=== PATIENT | female | born 1955 | race Caucasian/White ===

== ENCOUNTER 2016-05-29 15:04 | Inpatient (IN) | payer BC ==
[2016-05-29] MEDS ORDERED: Aspirin Low Dose CHEW TAB* 81 MG PO ONE (15:42)
[2016-05-29 16:29] LABS: Hematocrit 42 % (35-47); Hemoglobin 14.4 g/dl (12.0-16.0); Mean Corpuscular HGB Conc 34 g/dl (31-36); Mean Corpuscular Hemoglobin 30 pg (27-31); Mean Corpuscular Volume 89 fL (80-97); Mean Platelet Volume 9 um3 (7.4-10.4); Red Blood Count 4.75 10^6/ul (4.0-5.4); Red Cell Distribution Width 13 % (10.5-15); White Blood Count 8.4 10^3/ul (3.5-10.8)
[2016-05-29 16:43] LABS: Albumin 3.8 g/dL (3.2-5.2); BUN/Creatinine Ratio 20.3 (8-20); EGFR African American 102.6 (>60); EGFR Non-African American 79.8 (>60); Globulin 3.1 g/dL (2-4); Total Bilirubin 0.5 mg/dL (0.2-1.0); Total Protein 6.9 g/dL (6.4-8.9)
[2016-05-29 16:45] LABS: Troponin I 0.01 ng/mL (<0.04)
[2016-05-29] MEDS ORDERED: Iohexol 350* (CONTRAST) 500 ML MDV IV ONE (16:47)
--- NOTE | 2016-05-29 17:34 | RAD ---
INDICATION: Chest pain, cough, pleural effusion. COMPARISON: Comparison is made with a prior CT of the chest abdomen and pelvis from April 29, 2005. TECHNIQUE: A CT angiogram of the chest was performed with intravenous following intravenous injection of 75 ml of Omnipaque 350 nonionic contrast. Contiguous axial sections were obtained from the lung apices through the lung bases. Images were reconstructed in the coronal and sagittal planes. FINDINGS: There is relatively homogeneous opacification of the pulmonary arteries. There is marked narrowing of the lumen of the left main pulmonary artery and mild narrowing of the right main secondary to mediastinal and hilar lymphadenopathy. There is also narrowing of several left pulmonary artery segmental branches secondary to hilar lymphadenopathy. The heart is enlarged. There is a small to moderate size pericardial effusion present The thoracic aorta is normal in caliber and demonstrates homogeneous contrast opacification. There are multiple enlarged mediastinal and left hilar lymph nodes nodes. These form a large confluent mass surrounding and narrowing the left and right main pulmonary arteries as noted above. These measure up to 3.5 cm in transverse dimension in the pretracheal and precarinal region and 5.5 cm in transverse dimension in the subcarinal region. The confluent mass measures approximately 9.3 cm craniocaudal by 10.0 cm transverse by 5.2 cm AP. In addition, there are enlarged lymph nodes present in the supraclavicular region on the left side measuring up to 2.5 cm in transverse dimension. The patient is status post right mastectomy. No enlarged axillary lymph nodes are seen. There is a small right pleural effusion and a moderate size left pleural effusion. There are patchy infiltrates present in the left upper and lower lobes likely postobstructive less likely atelectasis. The liver is heterogeneous in density with multiple hypodense lesions measuring up to 2.2 cm in diameter. The liver is only partially visualized on this study. The liver is mildly enlarged. There is also mild enlargement of the spleen. There are bilateral adrenal nodules measuring up to 2.5 cm on the right side and 2.0 cm on the left side. No significant focal osseous abnormality is seen. IMPRESSION: 1. NO EVIDENCE FOR PULMONARY EMBOLISM. THERE IS NARROWING OF BOTH MAIN PULMONARY ARTERIES LEFT GREATER THAN RIGHT AND SEVERAL SEGMENTAL ARTERY BRANCHES ON THE LEFT SIDE SECONDARY TO MEDIASTINAL AND HILAR LYMPHADENOPATHY. 2. ENLARGED MEDIASTINAL, HILAR AND RIGHT SUPRACLAVICULAR LYMPH NODES. 3. SMALL RIGHT AND MODERATE SIZE LEFT PLEURAL EFFUSIONS. 4. SMALL TO MODERATE-SIZE PERICARDIAL EFFUSION. 5. INFILTRATES IN THE LEFT UPPER AND LOWER LOBES. 6. MULTIPLE HEPATIC METASTATIC LESIONS. 7. BILATERAL ADRENAL NODULES.
[2016-05-29] MEDS ORDERED: Furosemide IV* 10 MG/ML 10 ML VIAL (100 MG) IV ONE (18:30)
[2016-05-29] MEDS ORDERED: LORazepam TAB(*) 0.5 MG PO PRN (18:31)
[2016-05-29] MEDS ORDERED: Nicotine GUM* 2 MG PO PRN (18:31)
[2016-05-29] MEDS: Nicotine PATCH 21 MG/24 HR* PATCH TRANSDERM SCH (19:26)
--- NOTE | 2016-05-29 20:42 | ED ---
Michelle Wagoner Rebecca, scribed for Preston Marie MD on 05/29/16 at 1543 . HPI Chest Pain - HPI Summary HPI Summary: Pt is a 61 y/o F who presents to ED after being referred by [facility]. CXR at Urgent Care revealed "fluid on the lungs." Pt c/o CP, SOB and cough. Sx began gradually 1 month ago and have been constant and worsening since onset. CP is described by pt as "somebody grabbing something right out of my chest" and is discrete to the left anterior region. Pain is currently severe , ranked 9/10. Sx aggravated by deep breaths, laying down and position change, alleviated by nothing. Sx unchanged by leaning forward. Denies palpitations. No prior similar episodes. SHx current smoker. FHx CAD. Last physical exam was very long ago. - History of Current Complaint Chief Complaint: EDChestPainROMI Time Seen by Provider: 05/29/16 15:41 Hx Obtained From: Patient Onset/Duration: Started Weeks Ago, Still Present Timing: Constant Initial Severity: Moderate Current Severity: Severe Pain Intensity: 9 Pain Scale Used: 0-10 Numeric Chest Pain Location: Left Anterior Chest Pain Radiates: No Character: Other: - "somebody grabbing something" Aggravating Factor(s): Position - Laying down and position changes, Deep Breaths Alleviating Factor(s): Nothing Associated Signs and Symptoms: Positive: Shortness of Breath, Cough. Negative: Palpitations - Allergy/Home Medications Allergies/Adverse Reactions: Allergies Allergy/AdvReac Type Severity Reaction Status Date / Time Chlorpromazine Allergy See Comment Verified 05/29/16 15:08 [From Thorazine] Codeine Allergy Nausea Verified 05/29/16 15:08 PMH/Surg Hx/FS Hx/Imm Hx Endocrine/Hematology History: Denies: Hx Diabetes Cardiovascular History: Denies: Hx Hypertension Psychiatric History: Reports: Hx Anxiety, Hx Depression - Cancer History Cancer Type, Location and Year: BREAST CA - 2005 - Surgical History Surgery Procedure, Year, and Place: TONSILLECTOMY, C- SECTION (1975), HYSTERECTOMY (1995) Infectious Disease History: No Infectious Disease History: Denies: Traveled Outside the [place] in Last 30 Days - Family History Known Family History: Positive: Cardiac Disease - Social History Lives: With Family Smoking Status (MU): Current Every Day Smoker Review of Systems Positive: Chest Pain. Negative: Palpitations Positive: Shortness Of Breath, Cough All Other Systems Reviewed And Are Negative: Yes Physical Exam - Summary Physical Exam Summary: General: Pleasant, alert, generally comfortable appearing but there is visible tachypnea at a rate of 24 HEENT: Moist mucosa, PERRL Neck: Soft, supple, no adenopathy, no edema Heart: S1, S2, tachycardic, regular rhythm, no murmurs, rubs, or gallops. Left chest pain with sitting up for lung exam and pain is reproducible upon palpation. Lungs: Breathing comfortable, no wheezes. Rales and diminished breath sounds on the left. Abdominal: Soft, flat, nontender Extremities: Trace pitting edema bilaterally, no calf tenderness, calves soft Neuro: Alert and oriented x 3 Psych: Logical, coherent Triage Information Reviewed: Yes Vital Signs On Initial Exam: Initial Vitals Temp Pulse Resp BP Pulse Ox 97.8 F 122 18 153/71 97 05/29/16 15:08 05/29/16 15:08 05/29/16 15:08 05/29/16 15:08 05/29/16 15:08 Vital Signs Reviewed: Yes Procedures - Ultrasound Ultrasound: normal - Bedside sonosite No RV dilation, moderate appearing pericardial effusion, e-point septal separation suggests good ejection fraction. Left pleural effusion. No right pleural effusion. Diagnostics - Vital Signs Vital Signs Temp Pulse Resp BP Pulse Ox 05/29/16 15:08 97.8 F 122 18 153/71 97 - Laboratory Lab Results: Lab Results 05/29/16 05/29/16 05/29/16 Range/Units 16:10 16:10 16:10 WBC 8.4 (3.5-10.8) 10^3/ul RBC 4.75 (4.0-5.4) 10^6/ul Hgb 14.4 (12.0-16.0) g/dl Hct 42 (35-47) % MCV 89 (80-97) fL MCH 30 (27-31) pg MCHC 34 (31-36) g/dl RDW 13 (10.5-15) % Plt Count 175 (150-450) 10^3/ul MPV 9 (7.4-10.4) um3 Neut % (Auto) 73.7 (38-83) % Lymph % (Auto) 17.0 L (25-47) % Barbour % (Auto) 8.0 (1-9) % Eos % (Auto) 0.6 (0-6) % Baso % (Auto) 0.7 (0-2) % Absolute Neuts (auto) 6.2 (1.5-7.7) 10^3/ul Absolute Lymphs (auto) 1.4 (1.0-4.8) 10^3/ul Absolute Monos (auto) 0.7 (0-0.8) 10^3/ul Absolute Eos (auto) 0 (0-0.6) 10^3/ul Absolute Basos (auto) 0.1 (0-0.2) 10^3/ul Absolute Nucleated RBC 0.01 10^3/ul Nucleated RBC % 0.1 Sodium 137 (133-145) mmol/L Potassium 4.0 (3.5-5.0) mmol/L Chloride 102 (101-111) mmol/L Carbon Dioxide 27 (22-32) mmol/L Anion Gap 8 (2-11) mmol/L BUN 15 (6-24) mg/dL Creatinine 0.74 (0.51-0.95) mg/dL Est GFR ( Amer) 102.6 (>60) Est GFR (Non-Af Amer) 79.8 (>60) BUN/Creatinine Ratio 20.3 H (8-20) Glucose 119 H (70-100) mg/dL Lactic Acid 1.0 (0.5-2.0) mmol/L Calcium 10.0 (8.6-10.3) mg/dL Total Bilirubin 0.50 (0.2-1.0) mg/dL AST 27 (13-39) U/L ALT 22 (7-52) U/L Alkaline Phosphatase 99 (34-104) U/L Troponin I 0.01 (<0.04) ng/mL B-Natriuretic Peptide ( - 100) pg/mL Total Protein 6.9 (6.4-8.9) g/dL Albumin 3.8 (3.2-5.2) g/dL Globulin 3.1 (2-4) g/dL Albumin/Globulin Ratio 1.2 (1-3) 05/29/16 Range/Units 16:10 WBC (3.5-10.8) 10^3/ul RBC (4.0-5.4) 10^6/ul Hgb (12.0-16.0) g/dl Hct (35-47) % MCV (80-97) fL MCH (27-31) pg MCHC (31-36) g/dl RDW (10.5-15) % Plt Count (150-450) 10^3/ul MPV (7.4-10.4) um3 Neut % (Auto) (38-83) % Lymph % (Auto) (25-47) % Barbour % (Auto) (1-9) % Eos % (Auto) (0-6) % Baso % (Auto) (0-2) % Absolute Neuts (auto) (1.5-7.7) 10^3/ul Absolute Lymphs (auto) (1.0-4.8) 10^3/ul Absolute Monos (auto) (0-0.8) 10^3/ul Absolute Eos (auto) (0-0.6) 10^3/ul Absolute Basos (auto) (0-0.2) 10^3/ul Absolute Nucleated RBC 10^3/ul Nucleated RBC % Sodium (133-145) mmol/L Potassium (3.5-5.0) mmol/L Chloride (101-111) mmol/L Carbon Dioxide (22-32) mmol/L Anion Gap (2-11) mmol/L BUN (6-24) mg/dL Creatinine (0.51-0.95) mg/dL Est GFR ( Amer) (>60) Est GFR (Non-Af Amer) (>60) BUN/Creatinine Ratio (8-20) Glucose (70-100) mg/dL Lactic Acid (0.5-2.0) mmol/L Calcium (8.6-10.3) mg/dL Total Bilirubin (0.2-1.0) mg/dL AST (13-39) U/L ALT (7-52) U/L Alkaline Phosphatase (34-104) U/L Troponin I (<0.04) ng/mL B-Natriuretic Peptide 62 ( - 100) pg/mL Total Protein (6.4-8.9) g/dL Albumin (3.2-5.2) g/dL Globulin (2-4) g/dL Albumin/Globulin Ratio (1-3) Result Diagrams: 05/29/16 16:10 05/29/16 16:10 Lab Statement: Any lab studies that have been ordered have been reviewed, and results considered in the medical decision making process. - CT Chest/Thorax CTA CT Interpretation Completed By: Radiologist - 1. NO EVIDENCE FOR PULMONARY EMBOLISM. THERE IS NARROWING OF BOTH MAIN PULMONARY ARTERIES LEFT GREATER THAN RIGHT AND SEVERAL SEGMENTAL ARTERY BRANCHES ON THE LEFT SIDE SECONDARY TO MEDIASTINAL AND HILAR LYMPHADENOPATHY. 2. ENLARGED MEDIASTINAL, HILAR AND RIGHT SUPRACLAVICULAR LYMPH NODES. 3. SMALL RIGHT AND MODERATE SIZE LEFT PLEURAL EFFUSIONS. 4. SMALL TO MODERATE-SIZE PERICARDIAL EFFUSION. 5. INFILTRATES IN THE LEFT UPPER AND LOWER LOBES. 6. MULTIPLE HEPATIC METASTATIC LESIONS. 7. BILATERAL ADRENAL NODULES. - EKG 1518 Cardiac Rate: Tachycardia - 118 bpm EKG Rhythm: Sinus Tachycardia ST Segment: Normal - No ST changes Chest Pain Course/Dx - Course Course Of Treatment: Logged into [facility] for [facility] to review film. Read for image is "large left pleural effusion" and upon evaluation of image, conclusion is agreed upon. Assessment/Plan: She has not had medical care in many years. Her only known medical Hx is breast CA. She presents with progressive, worsening SOB and orthopnea. There is a large left pleural effusion and pericardial effusion. Very concerning for inflammatory process or CA. Dr. Estrada accepts and will likely request aspiration. She has been walking about the ER, has been fairly comfortable and has maintained her vitals, except for mild tachycardia. We elected not to emergently insert chest tube as this has been slowly progressive and she was stable in regards to her sx. - Diagnoses Provider Diagnoses: Pleural effusion, Pericardial effusion - Provider Notifications Discussed Care Of Patient With: Dr. Estrada, hospitalist, who accepts pt for admission. Time Discussed With Above Provider: 17:37 - Critical Care Time Critical Care Time: 30-74 min - 60 minutes Discharge - Discharge Plan Condition: Guarded Disposition: ADMITTED TO [facility] documentation as recorded by the Michelle valero Rebecca accurately reflects the service I personally performed and the decisions made by oh, Preston Marie MD.
[2016-05-29] MEDS: Levofloxacin 750 MG IVPREMIX(* 750 MG/150 ML BAG IVPB SCH (21:09)
[2016-05-29] MEDS: Nicotine Patch Removal NOTE FOLLOW UP SCH (21:12)
[2016-05-29] MEDS: Heparin VIAL(*) 5000 UNITS/ML VIAL (FIVE THOUSAND) SUBCUT SCH (21:12)
--- NOTE | 2016-05-29 23:05 | HP ---
HISTORY AND PHYSICAL: DATE OF ADMISSION: 05/29/16 PRIMARY CARE PROVIDER: Not listed. FORMER PRIMARY ONCOLOGIST: Dr. Sorensen. ADMITTING PROVIDER: VENICE Burns SUPERVISING PHYSICIAN: Dr. Franki Verdin.* (DICTATED BY VENICE BURNS) CHIEF COMPLAINT: Dyspnea. 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 The patient states that her symptoms actually first started as a cough just over a month ago and she has been having progressive shortness of breath over the last few weeks. She denies any fevers at home, but she has had drenching night sweats and complains of orthopnea. She is unable to lie flat without significant shortness of breath. She denies any abdominal pain, but does have some intermittent nausea. No vomiting or diarrhea. The patient's last mammogram was in 2010 of the left breast, history of right breast cancer which the mastectomy was completed on and her mammogram from that time was within normal limits. The patient had a pericardial effusion appreciated on CT scan and bedside ultrasound was completed in the emergency department, which did not show any evidence of tamponade. PAST MEDICAL HISTORY: Inflammatory breast cancer of the right breast, status post mastectomy as well as chemo and radiation in 2005 - was previously followed by Dr. Sorensen. PAST SURGICAL HISTORY: 1. Mastectomy. 2. Hysterectomy. 3. section. HOME MEDICATIONS: Aspirin as needed for pain. SOCIAL HISTORY: The patient lives at home with her and one cat. She has a 40 plus pack year smoking history and continues to smoke about a half a pack of cigarettes daily. REVIEW OF SYSTEMS: As listed above in the HPI. PHYSICAL EXAMINATION GENERAL: This is a well-appearing middle-aged female, who appears slightly older than her stated age, but is in no acute distress. VITAL SIGNS: Temperature 97.8 degrees Fahrenheit, pulse 122 beats per minute, respiratory rate 18 per minute, oxygen saturation 97% on room air, and blood pressure 153/71 mmHg. HEENT: Head is normocephalic and atraumatic. Artificial teeth are in place. NECK: Neck is supple and free of lymphadenopathy. No JVD appreciated. RESPIRATORY: Lungs, there is reduced breath sounds appreciated in the left lower lung field and are otherwise clear to auscultation without wheezes, crackles, or rhonchi and the patient has a normal work of breathing. Chest and breast were examined for abnormal lesions, none of which were present. HEART: Tachycardic rhythm, but regular and without murmurs, rubs, or gallops. ABDOMEN: Abdomen is soft and nontender to palpation. EXTREMITIES: No lower extremity edema present. SKIN: No rashes or lesions. PSYCH: The patient is anxious and tearful, but is alert and appropriately oriented. LABORATORY DATA: CBC is unremarkable with a white blood cell count of 8400, hemoglobin 14.4 g/dL, and platelet count of 175,000. Comprehensive metabolic panel is unremarkable with a sodium of 137 mmol/L as well as potassium of 4.0 mmol/L, BUN of 15 and creatinine of 0.74 with subsequent estimated GFR of near 80. Lactic acid is negative at 1.0. Transaminases and total bilirubin within normal limits. BNP is normal at 62. IMAGING: EKG show sinus tachycardia. CT of the chest shows mediastinal as well as hilar and right supraclavicular lymphadenopathy as well as a moderately sized left pleural effusion, small right pleural effusion, [id number] pericardial effusion as well as an infiltrate in the left upper and lower lobes and multiple hepatic lesions that appeared to be metastatic in origin. ASSESSMENT AND PLAN: This is a 61-year-old female with a history of stage III right inflammatory breast cancer treated with mastectomy, chemotherapy, and radiation in 2005, who presents with complaints of dyspnea and obvious infiltrates in the left lung with associated pleural effusion, but also hepatic nodes consistent with metastatic process as well as significant lymphadenopathy including right supraclavicular nodes making this suspicious for recurrence of her breast cancer. 1. Pneumonia - we will treat for left-sided pneumonia with Levaquin. 2. Pleural effusion - the patient is complaining of significant shortness of breath. This may be either be due to her pleural effusion or pericardial effusion. She is asymptomatic when sitting upright. We will request an ultrasound-guided thoracentesis for both therapeutic and diagnostic purposes, concerned that this may represent a recurrence of her breast cancer. The majority of her fluid is on the left side, with the right side being the side the supraclavicular nodes are present. So, this pleural effusion may be reactive to her pneumonia and has nothing to do with potential metastatic process. Regardless, she should receive some symptomatic relief with some of the fluid removed. We will also give a one-time dose of 20 mg of Lasix IV for hopefully some symptomatic relief. 3. Pericardial effusion - bedside ultrasound completed in the emergency department without evidence of tamponade. The patient is hemodynamically stable , but persistently tachycardic at this time. 4. History of inflammatory breast cancer - I am concerned for recurrence based on constellation of findings on her CT scan. Previously followed by Dr. Sorensen. 5. Hepatic lesions with supraclavicular mediastinal and hilar lymphadenopathy - constellation of findings along with a pleural effusion is suspicious for recurrence of her breast cancer. 6. Tobacco dependence - the patient will be placed on a nicotine patch during her hospital stay. 7. Anxiety - Diagnosis of potential recurrence of her breast cancer, she is quite tearful and anxious. We will prescribe p.r.n. Ativan during her hospital stay. 8. Code status: The patient is full code. 9. DVT prophylaxis: She is at moderate to high risk especially with possible active malignancy and will be placed on heparin 5000 units subcu every 8 hours. This will be more easily time adjusted to the thoracentesis as well. 10. Healthcare proxy is her . DISPOSITION: The patient is being admitted to inpatient for pneumonia with pleural effusion and evidence of recurrence of her breast cancer pending diagnostic and therapeutic thoracentesis. She may require a liver biopsy as well to help with the diagnostic portion and referral back to Oncology either at discharge or if the patient is still in the hospital on Tuesday, inpatient Oncology consultation would be warranted as well. VENICE BURNS CC: Dr. Raphael Sorensen* [id number]/[facility] #: [id number] DOUGLAS
[2016-05-29] MEDS: Acetaminophen TAB* 325 MG PO PRN (23:20)
[2016-05-30] MEDS: Heparin VIAL(*) 5000 UNITS/ML VIAL (FIVE THOUSAND) SUBCUT SCH ×3 (05:01→20:52)
[2016-05-30 05:29] LABS: Hematocrit 39 % (35-47); Hemoglobin 13.3 g/dl (12.0-16.0); Mean Corpuscular HGB Conc 34 g/dl (31-36); Mean Corpuscular Hemoglobin 30 pg (27-31); Mean Corpuscular Volume 89 fL (80-97); Mean Platelet Volume 9 um3 (7.4-10.4); Red Blood Count 4.39 10^6/ul (4.0-5.4); Red Cell Distribution Width 13 % (10.5-15); White Blood Count 9.4 10^3/ul (3.5-10.8)
[2016-05-30 05:40] LABS: BUN/Creatinine Ratio 20.5 (8-20); Calcium 9.5 mg/dL (8.6-10.3); EGFR Non-African American 65.3 (>60)
[2016-05-30] MEDS ORDERED: oxyCODONE/Acetamin 5/325 MG* TAB PO PRN ×2 (12:19→12:20)
[2016-05-30] MEDS: Senna TAB PO SCH (13:48)
--- NOTE | 2016-05-30 14:19 | PN ---
Subjective Date of Service: 05/30/16 Interval History: Patient seen this morning. Symptoms feel about the same, still with some difficulty breathing which is positional, also with pleuritic/positional chest pain. No documented fever but patient reports continued night sweats. Urinated a good amount last night but did not notice much improvement in her breathing. Family History: Unchanged from Admission Social History: Unchanged from Admission Past Medical History: Unchanged from Admission Objective Active Medications: Acetaminophen (Tylenol Tab*) 650 mg PO Q6H PRN Heparin Sodium (Porcine) (Heparin Vial(*)) 5,000 units SUBCUT Q8HR CHRISTY Levofloxacin/Dextrose (Levaquin 750 Mg Ivpremix(*)) 750 mg in 150 mls @ 100 mls /hr IVPB Q24H CHRISTY Lorazepam (Ativan Tab(*)) 0.5 mg PO Q4H PRN Nicotine (Nicotine Patch 21 Mg/24 Hr*) 1 patch TRANSDERM Q24H CHRISTY Nicotine Polacrilex (Nicotine Gum*) 2 mg PO Q2H PRN Oxycodone/Acetaminophen (Percocet 5/325 Tab*) 1 tab PO Q4H PRN Oxycodone/Acetaminophen (Percocet 5/325 Tab*) 2 tab PO Q6H PRN Pharmacy Profile Note (Nicotine Patch Removal Note*) 1 note FOLLOW UP [address] [facility] Senna (Senokot Tab*) 1 tab PO DAILY [facility] Vital Signs 05/29/16 05/29/16 05/30/16 22:14 22:25 00:45 Temperature 98.9 F 97.8 F Pulse Rate 119 112 Respiratory 18 18 16 Rate Blood Pressure 122/74 138/41 (mmHg) O2 Sat by Pulse 100 94 Oximetry 05/30/16 05/30/16 05/30/16 03:18 07:18 08:00 Temperature 97.0 F 98.4 F Pulse Rate 102 102 Respiratory 16 20 20 Rate Blood Pressure 113/49 115/46 (mmHg) O2 Sat by Pulse 97 97 Oximetry 05/30/16 13:48 Temperature Pulse Rate Respiratory 18 Rate Blood Pressure (mmHg) O2 Sat by Pulse Oximetry Oxygen Devices in Use Now: None Appearance: Middle-aged, F, sitting in bed in NAD Eyes: No Scleral Icterus Ears/Nose/Mouth/Throat: Mucous Membranes Moist Neck: NL Appearance and Movements; NL JVP Respiratory: - - Difficulty taking deep breaths, absent BS in LML and LLL ayala , diminished in R base, no wheezing Cardiovascular: NL Sounds; No Murmurs; No JVD, RRR Abdominal: NL Sounds; No Tenderness; No Distention Lymphatic: No Cervical Adenopathy Extremities: No Edema Skin: No Rash or Ulcers Neurological: Alert and Oriented x 3 Result Diagrams: 05/30/16 04:45 05/30/16 04:45 Additional Lab and Data: Assess/Plan/Problems-Billing Assessment: CAP and B/L pleural effusions, LAD and hepatic lesions concerning for metastatic disease in a 61 yo F with hx of inflammatory breast cancer s/p chemo , mastectomy and RT in 2005 - Patient Problems (1) CAP (community acquired pneumonia) Current Visit: Yes Comment: Continue with IV Levaquin for now. Not requiring supplemental O2. (2) Pleural effusion Current Visit: Yes Comment: Plan for IR thoracentesis for diagnostic and therapeutic purposes. (3) Breast cancer Current Visit: Yes Comment: s/p chemo, surgery and RT in 2005. Has not followed up with Dr. Sorensen in years. Obviously with LAD, effusions and hepatic lesions there is a high concern for recurrence. Will get Oncology consult tomorrow. (4) DVT prophylaxis Current Visit: Yes Comment: HSQ Status and Disposition: Inpatient for thoracentesis and Oncology consult
[2016-05-30] MEDS: Nicotine PATCH 21 MG/24 HR* PATCH TRANSDERM SCH (20:59)
[2016-05-30] MEDS: Acetaminophen TAB* 325 MG PO PRN (21:01)
[2016-05-30] MEDS: Levofloxacin 750 MG IVPREMIX(* 750 MG/150 ML BAG IVPB SCH (21:02)
[2016-05-30] MEDS: Nicotine Patch Removal NOTE FOLLOW UP SCH (21:06)
[2016-05-31] MEDS: Heparin VIAL(*) 5000 UNITS/ML VIAL (FIVE THOUSAND) SUBCUT SCH ×3 (04:58→21:56)
[2016-05-31] MEDS: Senna TAB PO SCH (08:50)
[2016-05-31] MEDS ORDERED: HYDROmorphone TAB* 2 MG PO PRN (10:48)
[2016-05-31] MEDS ORDERED: Scopolamine 1.5 mg* PATCH TRANSDERM SCH (11:00)
--- NOTE | 2016-05-31 14:41 | CONS ---
CONSULTATION REPORT: DATE: 05/31/2016. REFERRING PHYSICIAN: Dr. Verdin. REASON FOR CONSULTATION: Lung mass. 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 Last seen by me in 2010. She had had relatively good health since 2010. She has had no changes in her chest wall, energy has been good and considers herself healthy. She had continued to smoke, though has been cutting back. Most recently has been smoking 10 cigarettes per day. Her health deteriorated approximately a month ago. She started to develop a cough that was persistent and progressive. She was treated for pneumonia but without improvement in her symptoms. She also has developed shortness of breath. She cannot take a deep breath without feeling pain and she has had difficulty with exertion. She has had increasing chest pain on the left side, mid chest radiating to shoulder and then radiating to her back. Appetite has been so poor. Every time she tries to eat she feels like her stomach fills up very quickly and she has lost 12 pounds over the past month, she has also been constipated. Energy has been very poor. She was seen at [facility] and told that she had fluid on the side of her lung and sent to the emergency room. On presentation to the emergency room on 06/04/16, she had a CTA. There was no evidence of pulmonary embolus, but she was found to have extensive mediastinal lymphadenopathy, clint mass in the mediastinum, at least 7 cm. On the left side , she has a left lower lobe consolidation. There appears to be a cut off of one of her left bronchi apparently pinched by lymphadenopathy and then a postobstructive consolidation. There is a moderate left pleural effusion with some atelectasis in the left lower lobe as well. No axillary chest wall disease and bone windows appear clear. There are no adrenal lesions. There are multiple hypodense hepatic lesions in both lobes, largest in the left lobe of the liver. She has been admitted to the hospital, is on oxygen. Tried Percocet for pain control, but it caused nausea and now she does not want to take it anymore. PAST MEDICAL HISTORY: 1. Breast cancer. Diagnosed in 2004. She had inflammatory disease and was treated with neoadjuvant ACT chemotherapy. She was ER, CO, and HER-2/gulshan negative. She had a bilateral mastectomy after her chemotherapy in September 2005. At that time she had 3 axillary lymph nodes removed that were negative. Right modified radicle mastectomy showed extensive chemotherapy effect with focal residual invasive disease 0.3 cm in greatest span. She was subsequently followed through 2010, remained disease free and has not been seen since that time. 2. Anxiety and depression. Lifelong challenge, originally diagnosed in her mid 30s. Symptoms have been intermittent and recently done relatively well. She has taken lorazepam in the past which has helped. She has never been on SSRI. 3. Fibroids, total abdominal hysterectomy in 1995, uncontrolled bleeding. 4. Bursitis, intermittent, left shoulder. PAST SURGICAL HISTORY: Right-sided mastectomy for breast cancer. MEDICATIONS: Home medicines included aspirin alone. ALLERGIES: THORAZINE causes stiff tongue and she has had vomiting in the past to CODEINE. FAMILY HISTORY: Sister had cancer 45 years old, treated with surgery, radiation , and chemotherapy. No other known family history. SOCIAL HISTORY: , lives in [facility]. No children. She has a 65-pack year smoking history and currently smokes 10 cigarettes a day. Drinks 1 to 2 alcoholic beverages per night and was with her in the Clinic. REVIEW OF SYSTEMS: General: Fatigue, 12-pound weight loss. HEENT: Cough, phlegm production, otherwise negative. Lungs: Short of breath, chest pain with a deep breath, chronic cough. No hemoptysis. Cardiac: Negative. GI: Lost 12 pounds, not eating much, constipated and nausea with oxycodone. : Negative. Musculoskeletal: Pain in left shoulder, somewhat erratic pains in the past. Skin: Negative. Neurologic: Anxiety, has not been in control. Otherwise negative. No focal complaints. PHYSICAL EXAM: VITAL SIGNS: Temperature 97.2, BP 138/56, pulse 87, and respirations 16. HEENT: Mucosa moist, no lesions. No cervical or supraclavicular lymphadenopathy. CHEST: Right-sided mastectomy, axilla negative bilaterally. LUNGS: Crackles left side, no wheezes. Could not bring E to A changes. HEART: Regular rhythm, S1 and S2. No murmurs, rubs, or gallops. ABDOMEN: Obese, nontender, and nondistended. Can palpate liver edge which is nontender. EXTREMITIES: No cyanosis or edema, slight clubbing. NEUROLOGIC: Grossly nonfocal and oriented x3. DIAGNOSTIC STUDIES/LAB DATA: Blood counts are normal. Essentially normal renal function. No elevation in LFTs. CT scan as noted above. ASSESSMENT AND PLAN: A 61-year-old female, smoker, with a remote history of inflammatory breast cancer, ER/CO and Her-2/gulshan negative, has been disease free since 2004. Now presents with marked mediastinal lymphadenopathy, left lower lobe consolidation and liver lesions. Highly suspicious for a primary lung cancer. 1. Agree with plans for diagnostic and therapeutic thoracentesis. If the study is negative, next step will be bronchoscopy with EBUS. We will hold on consultation with Dr. Judd until after the thoracentesis. 2. Pain control. We will try her on OxyContin 10 b.i.d. and Dilaudid. I still think narcotics are the best pain medicine for her, the nausea will be an issue. Try scopolamine patch. 3. Anxiety. I will probably just put her on a benzodiazepine. She is appropriately anxious at this time. No recent episodes of depression. No hospitalizations for psychiatric illness. 4. Continue DVT prophylaxis. 5. She does not need to be in the hospital for diagnostic reasons. Discharge once pain is controlled and her breathing is stable and we can follow up in the office. [id number]/[facility] #: [id number] DOUGLAS
--- NOTE | 2016-05-31 15:09 | RAD ---
CPT II Codes: 6100F INDICATION: Shortness of breath with bilateral pleural effusions COMPARISON: CT chest May 29, 2016 PROCEDURE NOTE AND IMAGING FINDINGS: The benefits of the and risks of procedure explained to the patient. The patient consented of the exam. The patient was brought to the ultrasound suite and multiple images of the left hemithorax were obtained. There was a large pleural effusion present. The site was marked. A formal time out was performed before beginning the procedure. The patient was prepped and draped in the usual sterile fashion. The patient?s posterior chest wall was anesthetized with 1% lidocaine. A small skin willem was made to allow placement of the thoracentesis needle and catheter. Approximately 950 mL of straw-colored fluid was aspirated. The patient tolerated the procedure without incident. IMPRESSION: Uncomplicated thoracentesis as described in the body of the report.
[2016-05-31 15:23] LABS: Body Fluid Appearance Bloody
[2016-05-31 15:30] LABS: Body Fluid WBC 3871 /mcL
[2016-05-31 15:43] LABS: Body Fluid Total Cells Counted 100
[2016-05-31] MEDS: Acetaminophen TAB* 325 MG PO PRN (15:47)
--- NOTE | 2016-05-31 16:46 | PN ---
Subjective Date of Service: 05/31/16 Interval History: Patient seen this morning. Pain unchanged. Had nausea with 2 percocets last night after tolerating initial single pill earlier in the day. Ambulating around the unit today. Family History: Unchanged from Admission Social History: Unchanged from Admission Past Medical History: Unchanged from Admission Objective Active Medications: Acetaminophen (Tylenol Tab*) 650 mg PO Q6H PRN PRN Reason: FEVER/PAIN Last Admin: 05/31/16 15:47 Dose: 650 mg Heparin Sodium (Porcine) (Heparin Vial(*)) 5,000 units SUBCUT Q8HR [facility] Last Admin: 05/31/16 14:14 Dose: Not Given Hydromorphone HCl (Dilaudid Tab*) 2 mg PO Q4H PRN PRN Reason: PAIN Last Admin: 05/31/16 12:17 Dose: 2 mg Levofloxacin/Dextrose (Levaquin 750 Mg Ivpremix(*)) 750 mg in 150 mls @ 100 mls /hr IVPB Q24H [facility] Last Admin: 05/30/16 21:02 Dose: 100 mls/hr Lorazepam (Ativan Tab(*)) 0.5 mg PO Q4H PRN PRN Reason: ANXIETY Nicotine (Nicotine Patch 21 Mg/24 Hr*) 1 patch TRANSDERM Q24H [facility] Last Admin: 05/30/16 20:59 Dose: 1 patch Nicotine Polacrilex (Nicotine Gum*) 2 mg PO Q2H PRN PRN Reason: CRAVING Oxycodone HCl (Oxycontin(*)) 10 mg PO Q12HR [facility] Pharmacy Profile Note (Nicotine Patch Removal Note*) 1 note FOLLOW UP 2100 [facility] Last Admin: 05/30/16 21:06 Dose: Not Given Scopolamine (Transderm-Scop 1.5 Mg Patch*) 1 patch TRANSDERM Q72H [facility] Last Admin: 05/31/16 12:17 Dose: 1 patch Senna (Senokot Tab*) 1 tab PO DAILY [facility] Last Admin: 05/31/16 08:50 Dose: Not Given Vital Signs 05/30/16 05/30/16 05/30/16 17:26 19:16 19:21 Temperature 97.4 F Pulse Rate 93 Respiratory 18 18 16 Rate Blood Pressure 124/45 (mmHg) O2 Sat by Pulse 93 Oximetry 05/30/16 05/31/16 05/31/16 19:26 00:13 03:03 Temperature 97.5 F 97.4 F Pulse Rate 89 89 Respiratory 16 16 16 Rate Blood Pressure 128/57 135/70 (mmHg) O2 Sat by Pulse 95 95 Oximetry 05/31/16 05/31/16 05/31/16 07:29 08:00 12:17 Temperature 97.2 F Pulse Rate 84 Respiratory 16 16 18 Rate Blood Pressure 138/56 (mmHg) O2 Sat by Pulse 96 Oximetry 05/31/16 05/31/16 05/31/16 14:00 14:07 14:44 Temperature 99.1 F 99.4 F Pulse Rate 104 93 Respiratory 16 18 16 Rate Blood Pressure 145/66 146/68 (mmHg) O2 Sat by Pulse 93 94 Oximetry Oxygen Devices in Use Now: None Appearance: Middle-aged, F, sitting in chair in NAD Eyes: No Scleral Icterus Ears/Nose/Mouth/Throat: Mucous Membranes Moist Neck: NL Appearance and Movements; NL JVP Respiratory: - - Some pain with inspiration, diminished/absent BS in LML and LLL field, diminished in R base Cardiovascular: NL Sounds; No Murmurs; No JVD, RRR Abdominal: NL Sounds; No Tenderness; No Distention Lymphatic: No Cervical Adenopathy Extremities: No Edema Skin: No Rash or Ulcers Neurological: Alert and Oriented x 3 Result Diagrams: 05/30/16 04:45 05/30/16 04:45 Additional Lab and Data: Microbiology and Other Data: Microbiology 05/31/16 14:50 Gram Stain - Final Body Fluid - Pleura Assess/Plan/Problems-Billing Assessment: CAP and B/L pleural effusions, LAD and hepatic lesions concerning for metastatic disease in a 61 yo F with hx of inflammatory breast cancer s/p chemo , mastectomy and RT in 2005 - Patient Problems (1) CAP (community acquired pneumonia) Current Visit: Yes Comment: Will complete short course of Levaquin, can switch to PO. (2) Pleural effusion Current Visit: Yes Comment: LAD, liver lesions. Concern for malignancy. Dr. Sorensen feels this could be new lung cancer. S/P thoracentesis this afternoon with 950 cc removed. Cytology pending. Appreciate Dr. Sorensen's assistance with pain control. (3) Breast cancer Current Visit: Yes Comment: s/p chemo, surgery and RT in 2005. (4) DVT prophylaxis Current Visit: Yes Comment: HSQ Status and Disposition: Inpatient until pain controlled
[2016-05-31] MEDS ORDERED: Levofloxacin TAB* 500 MG PO SCH (21:00)
[2016-05-31] MEDS: oxyCODONE SR TAB(*) 10 MG TAB.SR PO SCH (21:51)
[2016-05-31] MEDS: Nicotine PATCH 21 MG/24 HR* PATCH TRANSDERM SCH (21:52)
[2016-05-31] MEDS: Nicotine Patch Removal NOTE FOLLOW UP SCH (21:53)
[2016-06-01] MEDS: Heparin VIAL(*) 5000 UNITS/ML VIAL (FIVE THOUSAND) SUBCUT SCH ×2 (05:24→14:17)
[2016-06-01] MEDS: oxyCODONE SR TAB(*) 10 MG TAB.SR PO SCH (09:18)
[2016-06-01] MEDS: Senna TAB PO SCH (09:20)
[2016-06-01 13:05] LABS: Total Protein, BF 3.7 g/dL
--- NOTE | 2016-06-01 14:38 | PN ---
Progress Note - Progress Note SOAP: Subjective: [] Better today. Feels breathing better after fluid removed. Pain is a little better today and not having nausea with Oxycontin. Acetaminophen (Tylenol Tab*) 650 mg PO Q6H PRN PRN Reason: FEVER/PAIN Last Admin: 05/31/16 15:47 Dose: 650 mg Heparin Sodium (Porcine) (Heparin Vial(*)) 5,000 units SUBCUT Q8HR [facility] Last Admin: 06/01/16 14:17 Dose: 5,000 units Hydromorphone HCl (Dilaudid Tab*) 2 mg PO Q4H PRN PRN Reason: PAIN Last Admin: 05/31/16 12:17 Dose: 2 mg Influenza Virus Vaccine (Fluarix *Quad* 2015-*) 0.5 ml IM .ONCE ONE Stop: 06/02/16 09:01 Levofloxacin (Levaquin Tab*) 500 mg PO Q24H [facility] Last Admin: 05/31/16 21:52 Dose: 500 mg Lorazepam (Ativan Tab(*)) 0.5 mg PO Q4H PRN PRN Reason: ANXIETY Nicotine (Nicotine Patch 21 Mg/24 Hr*) 1 patch TRANSDERM Q24H [facility] Last Admin: 05/31/16 21:52 Dose: 1 patch Nicotine Polacrilex (Nicotine Gum*) 2 mg PO Q2H PRN PRN Reason: CRAVING Oxycodone HCl (Oxycontin(*)) 10 mg PO Q12HR [facility] Last Admin: 06/01/16 09:18 Dose: 10 mg Pharmacy Profile Note (Nicotine Patch Removal Note*) 1 note FOLLOW UP 2100 [facility] Last Admin: 05/31/16 21:53 Dose: 1 note Scopolamine (Transderm-Scop 1.5 Mg Patch*) 1 patch TRANSDERM Q72H [facility] Last Admin: 05/31/16 12:17 Dose: 1 patch Senna (Senokot Tab*) 1 tab PO DAILY [facility] Last Admin: 06/01/16 09:20 Dose: 1 tab Objective: [] Vital Signs Temp Pulse Resp BP Pulse Ox 98.5 F 104 16 102/68 92 06/01/16 11:05 06/01/16 11:05 06/01/16 11:18 06/01/16 11:36 06/01/16 11:05 HEENT - Mucosa moist. CTA but decreased BS on right RRR S1S2 Abd - NT/ND +BS Ext - no edema. Assessment: []Stable today, diagnosis pending Plan: []1. Continue Oxycontin 10 bid today, scopolamine 2. Will present at tumor board tomorrow 3. Discussed bronchoscope if path negative from fluid 4. Can d/c once symptoms improved and I will follow up with pathology.
[2016-06-01 16:11] VITALS: BP 126/61
[2016-06-01] MEDS ORDERED: Influenza VAC *QUAD* 2016-17* 0.5 ML SYRINGE IM ONE (18:08)
--- NOTE | 2016-06-02 08:07 | DS ---
DISCHARGE SUMMARY: DATE OF ADMISSION: 05/29/16 DATE OF DISCHARGE: 06/01/16 PRIMARY CARE PROVIDER: None. REFERRED TO: [facility]. PRIMARY DIAGNOSES: Include: 1. Community-acquired pneumonia associated with pleural effusion and newly- identified liver lesions concerning for malignancy. 2. History of breast cancer. 3. Tobacco abuse. 4. Anxiety. SECONDARY DIAGNOSIS: Large mediastinal hilar lymphadenopathy. MEDICATIONS ON DISCHARGE: 1. Oxycodone SR 10 mg twice daily, dispensed 60 tablets. 2. Levaquin 500 mg daily for 5 additional days. 3. Docusate 100 mg twice daily as needed for constipation. 4. Acetaminophen 650 mg every 6 hours as needed for pain. PROCEDURE PERFORMED DURING HOSPITAL STAY: Thoracentesis performed by Dr. Valentin , 05/31/16, impression: 950 cc of straw-colored fluid was aspirated, sent for cytology. CONSULTATIONS DURING THE HOSPITAL STAY: Dr. Sorensen from Oncology. PERTINENT IMAGING PERFORMED DURING THE HOSPITAL STAY: CTA chest and thorax, impression: No evidence of pulmonary embolism. There is narrowing of both main pulmonary arteries, left greater than right, and several segmental artery branches on the left side secondary to mediastinal hilar lymphadenopathy, large mediastinal hilar lymphadenopathy on right, supraclavicular lymph nodes. Small right and moderate left-sided pleural effusions. Small to moderate pericardial effusion. Infiltrates in the left upper and lower lobes. Multiple hepatic metastatic lesions. Bilateral adrenal nodules. HISTORY OF PRESENT ILLNESS AND HOSPITAL COURSE: This is a pleasant 61-year-old female with past medical history as indicated above including right inflammatory breast cancer status post mastectomy and chemo in 2016. She was lost to followup, not following with a primary care provider, presenting with new-onset dyspnea found with pericardial and pleural effusion status post thoracentesis as indicated above, 950 cc of fluid removed. She was also found with new large mediastinal and hilar lymphadenopathy with associated new liver lesions. There is obviously a concern for cancer. Cytology is pending from the pleural effusion. She is to follow up with Dr. Sorensen upon discharge. Pain control, which was both thoracic in her shoulder and her back, was difficult during the course of the hospital stay. It was complicated by patient's nausea with taking narcotics. She was ultimately transitioned to long-acting oxycodone with good relief. On day of discharge, she took one tab of 10 mg oxycodone in the morning without pain when seen later in the evening. She was anxious to return home. Medications were sent to [facility]. There were no complications during the patient's hospital stay. At followup, please: 1. Evaluate for followup with Dr. Sorensen as well as primary care provider. 2. Continued pain control. 3. Please follow cytology. Reasons to return to the hospital including, but not limited to worsening of symptoms chest pain, shortness of breath, nausea, vomiting, lightheadedness, bleeding from any source, inability to obtain or tolerate medications were discussed with the patient. She acknowledged understanding. TIME SPENT: Greater than 45 minutes were spent discharging the patient; greater than half was spent [id number] with the patient. CC: [facility]; Raphael Sorensen MD of [facility] * [id number]/[facility] #: [id number] MTDD
[2016-06-02] MEDS ORDERED: Influenza VAC *QUAD* 2016-17* 0.5 ML SYRINGE IM ONE (09:00)
[2016-06-03 12:24] LABS: BF PH 7.7
== END 2016-06-01 18:25 | disposition home or self-care (01) | DRG 139 ==
LOC: ED 15:04 → MEDTELE 18:27
PROVIDERS: ADMIT Hospitalist; ATTEND Internal Medicine
PROC: 0W9B3ZX Drainage of Left Pleural Cavity, Percutaneous Approach, Diagnostic (ICD-10-PCS; principal; 2016-05-31)
DX: J18.8 Other pneumonia, unspecified organism (principal); J90 Pleural effusion, not elsewhere classified; I31.3 Pericardial effusion (noninflammatory); J98.11 Atelectasis; F41.9 Anxiety disorder, unspecified; F17.210 Nicotine dependence, cigarettes, uncomplicated; K76.9 Liver disease, unspecified; Z79.82 Long term (current) use of aspirin; Z85.3 Personal history of malignant neoplasm of breast; Z88.6 Allergy status to analgesic agent; Z88.8 Allergy status to other drugs, medicaments and biological substances; Z80.9 Family history of malignant neoplasm, unspecified
CPT/HCPCS: 32555; 36415; 71275; 80048; 80053; 83605; 83880; 83986; 84157; 84484; 85025; 85610; 85730; 87040; 87205; 88112; 88305; 88341; 88342; 89051; 90686; 93005; 99223; 99232; 99283; 99406; A9270-GY; J1644; J1940; Q9967

== ENCOUNTER 2016-06-17 11:33 | Inpatient (IN) | payer BC ==
[~2016-06-17 11:33] MED LIST: Buffered Lidocaine 1% SYR 3ML* 3 ML/SYR SYRINGE INTRADERM ONE
[2016-06-17] MEDS ORDERED: Lidocaine 1% INJ* 10 MG/ML 30 ML SDV ONE (13:02)
[2016-06-17] MEDS ORDERED: Midazolam* 1 MG/ML 5 ML VIAL (5 MG) ONE (14:12)
--- NOTE | 2016-06-17 14:21 | RAD ---
HISTORY: Left thoracentesis COMPARISONS: CT dated May 29, 2016 VIEWS:1: Single frontal portable view of the chest at 2:05 PM FINDINGS: LINES AND TUBES: None. CARDIOMEDIASTINAL SILHOUETTE: The cardiac mediastinal silhouette is shifted to the left. PLEURA: There is large left pleural effusion. LUNG PARENCHYMA: There is consolidation of the left lower lobe ABDOMEN: The upper abdomen is clear. There is no subphrenic gas. BONES AND SOFT TISSUES: No bone or soft tissue abnormalities are noted. IMPRESSION: LARGE LEFT PLEURAL EFFUSION WITH LEFT LOWER LOBE CONSOLIDATION
[2016-06-17] MEDS ORDERED: ceFAZolin 2 GM PREMIX (*) 2 GM/50 ML BAG IVPB ONE (14:42)
[2016-06-17] MEDS ORDERED: Ondansetron INJ* 2 MG/ML VIAL IV PRN ×2 (15:56→17:40)
[2016-06-17] MEDS ORDERED: DiMENhydriNATE IV* 50 MG/ML VIAL IV PUSH PRN (15:56)
[2016-06-17] MEDS ORDERED: HYDROmorphone INJ* 1 MG/ML CARPUJECT SYRINGE IV PRN (15:56)
--- NOTE | 2016-06-17 16:46 | PN ---
Progress Note - Progress Note Note: Pt is 61 y o f smoker with h/o breast cancer found to have b/l pleural effusion , large effusion on left during recent hospitalization for SOB. She was also noted to have significant mediastinal and hilar adenopathy and was brought in today for EBUS/bronchoscopy for lymph node sampling. Pt was noted to be in significant resp distress upon arrival. She was tachypneic and tachycardic with decreased breath sounds on left side. Bedside U/S revealed large left effusion. She had thoracentesis at bedside with removal of 1L of sero sangious fluid. Pt had CXR post procedure whic showed residual effusion, left lung atelectasis and air concerning for trapped lung. Pt looked clinically better post procedure. Her O2 saturations were improved to high 90`s. Given the fact that she had trapped lung with recurrence of fluid in shorter interval and high likely goddard of malignancy, pleurex catheter was placed prior to planned EBUS. Pt had 800cc of pleural fluid drained after pleurex catheter was placed. EBUS bronchoscopy was then performed under [place]. Pt was noted to have endobronchial involvement on left side starting from distal left lung and further down to segmental bronchi. EBUS bronchoscopy was positive for malignant cells on JERRELL evaluation. Pt was extubated post procedure and was seen in recovery in optimal condition. Pt will be admitted to inpt telemetry floor for overnight observation. O/E: Pt in NAD, coughing intermittently HEENT: PERRLA, No JVD Lungs: diminshed a/e at bases L>R, Lt pleurex in place CVS: S1, S2+ Abd: Soft, BS+ Ext: Normal ROM Neuro; drowsy, no focal defecits Vital Signs Temp Pulse Resp BP Pulse Ox 97.2 F 120 20 123/84 92 06/17/16 12:45 06/17/16 12:45 06/17/16 12:45 06/17/16 12:45 06/17/16 12:45 CXR: Large left effusion, free air with centrally collapsed lung I/R: 61 y o f with metastatic disease, primary unknown as biopsies are pending, likely lung s/p thoracentesis for therapeutic and diagnostic reasons 06/17/16 followed by pleurex catheter placement and EBUS bronchoscopy with JERRELL findings of metastatic disease Pt still hypoxic, has pleurex catheter open to water seal Pt will be admitted to hospital[facility] for observation She will need teaching tomorrow from [facility] team regarding drainage of pleural catheter Pain mx as needed Regular diet c/w home meds DVT px; Heparin sq She might need O2 at d/c D/w Dr Sorensen, Dr Whitaker
[2016-06-17] MEDS: fentaNYL* 50 MCG/ML 2 ML VIAL (100 MCG VIAL) IV PRN ×3 (17:00→17:57)
[2016-06-17] MEDS ORDERED: Levalbuterol 1.25MG/0.5ML NEB ONE (17:01)
[2016-06-17] MEDS ORDERED: Morphine INJ* 10 MG/ML 1 ML CARPUJECT ONE (17:14)
[2016-06-17] MEDS: Morphine INJ* 2 MG/ML 1 ML CARPUJECT IV PRN ×2 (17:18→21:30)
[2016-06-17] MEDS ORDERED: Levalbuterol 1.25MG/0.5ML NEB INH PRN (17:47)
[2016-06-17] MEDS ORDERED: fentaNYL* 50 MCG/ML 2 ML VIAL (100 MCG VIAL) ONE (17:49)
--- NOTE | 2016-06-17 17:51 | RAD ---
HISTORY: Hilar mass, left chest catheter, endobronchial ultrasound COMPARISONS: June 17, 2016 at 2:02 PM VIEWS:1: Single frontal portable view of the chest at 5:25 PM FINDINGS: LINES AND TUBES: A left-sided chest tube is noted CARDIOMEDIASTINAL SILHOUETTE: The cardiomediastinal silhouette is partially obscured. PLEURA: The costophrenic angles are sharp. No pleural abnormalities are noted. There is no appreciable pneumothorax. LUNG PARENCHYMA: Again noted is consolidation of the left lower lobe ABDOMEN: The upper abdomen is clear. There is no subphrenic gas. BONES AND SOFT TISSUES: No bone or soft tissue abnormalities are noted. IMPRESSION: LINES AND TUBES ABOVE. AGAIN NOTED IS CONSOLIDATION OF THE LEFT LOWER LOBE.
--- NOTE | 2016-06-17 18:10 | PN ---
Hospitalist Progress Note HOSPITALIST ADDENDUM Case reviewed and d/w Norman MILLARD and Dr. Judd. Mrs. Pimentel is a 61yo F with PMH of breast CA, recent admission when she was found to have pleural effusion, possible liver mets who presented today for EBUS. Please see Dr. Judd's note for further details. Patient will be admitted for observation overnight. Agree with current management.
[2016-06-17 20:28] LABS: Hematocrit 36 % (35-47); Hemoglobin 12.3 g/dl (12.0-16.0); Mean Corpuscular HGB Conc 34 g/dl (31-36); Mean Corpuscular Hemoglobin 30 pg (27-31); Mean Corpuscular Volume 88 fL (80-97); Mean Platelet Volume 7 um3 (7.4-10.4); Red Blood Count 4.15 10^6/ul (4.0-5.4); Red Cell Distribution Width 13 % (10.5-15); White Blood Count 14.8 10^3/ul (3.5-10.8)
[2016-06-17 20:49] LABS: Albumin 2.9 g/dL (3.2-5.2); BUN/Creatinine Ratio 22.2 (8-20); Calcium 9.1 mg/dL (8.6-10.3); EGFR African American 147.6 (>60); EGFR Non-African American 114.8 (>60); Globulin 3.1 g/dL (2-4); Potassium 4.2 mmol/L (3.5-5.0); Total Bilirubin 0.5 mg/dL (0.2-1.0)
[2016-06-17] MEDS: oxyCODONE SR TAB(*) 10 MG TAB.SR PO SCH (20:50)
[2016-06-17] MEDS: Enoxaparin(*) 40 MG/0.4 ML SYR SUBCUT SCH (20:50)
--- NOTE | 2016-06-17 21:09 | HP ---
ADMISSION HISTORY AND PHYSICAL: DATE OF ADMISSION: 06/17/16 PRIMARY ONCOLOGIST: Raphael Sorensen MD. MASSAGE COORDINATOR: Dr. Judd. ADMITTING PROVIDER: VENICE Burns SUPERVISING PHYSICIAN: Yudith Whitaker MD.* (DICTATED BY VENICE BURNS) CHIEF COMPLAINT: Dyspnea. HISTORY OF PRESENT ILLNESS: This is a 61-year-old female who was recently admitted with a large left-sided pleural effusion with concern for possible malignancy, who has been seen by Dr. Sorensen in outpatient followup arranged per Dr. Judd to perform bronchoscopy, which was scheduled for today. Dr. Judd saw the patient in the office 2 days ago and she was noted to be mildly tachycardic and tachypneic at that time, but not hypoxic. When the patient arrived to the surgical stay unit this morning, she was noted to be more tachypneic and tachycardic and mildly hypoxic. She had no lung sounds appreciated on the left side. Bedside ultrasound performed by Dr. Judd showed large pleural effusion. Thoracentesis performed by Dr. Judd removed approximately 1 L of pleural fluid. The patient started to develop some chest discomfort with the thoracentesis. Chest x-ray was performed, which showed what looked like compressive atelectasis. The patient subsequently underwent bronchoscopy with Dr. Judd, which demonstrated some extensive endobronchial involvement. No focal lesion or evidence of obstruction per se. JERRELL during bronchoscopy was positive for malignancy. Dr. Judd requested Dr. Rojas with General Surgery to place PleurX catheter prior to bronchoscopy, which was originally placed on suction and has subsequently been closed. The patient is requiring 10 L via mask in the recovery period to maintain oxygen saturations in the low 90s or so. Hospitalist group was asked to evaluate for admission. PAST MEDICAL HISTORY: 1. 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 Sorensen. 2. Recent hospital admission for community-acquired pneumonia and left-sided pleural effusion. PAST SURGICAL HISTORY: 1. Mastectomy. 2. Hysterectomy. 3. . HOME MEDICATIONS: 1. Ventolin 2 puffs inhaled q.4 hours as needed for shortness of breath. 2. Docusate 100 mg p.o. b.i.d. 3. Dilaudid 2 mg p.o. q.4 hours as needed for pain. 4. OxyContin 10 mg p.o. q.12 hours. SOCIAL HISTORY: The patient lives at home with her . She has a 40 plus pack year smoking history and continues to smoke about a half a pack of cigarettes daily. REVIEW OF SYSTEMS: The patient feels mildly short of breath, but states that she is otherwise fairly comfortable. She notes some mild substernal chest discomfort. She denies any palpitations, abdominal pain, nausea, or vomiting. No other recent illness. PHYSICAL EXAMINATION GENERAL: This is a middle-aged female, who is sitting actually rather comfortably in a stretcher in the recovery area with the oxygen mask in place, in no acute distress. RECENT VITAL SIGNS: Temperature 97.5 degrees Fahrenheit, pulse 128 beats per minute, respiratory rate 21, oxygen saturation is 94% on 10 L, and blood pressure 111/36 mmHg. HEENT: Head is normocephalic and atraumatic. Mucous membranes are pink and moist. RESPIRATORY: No breath sounds are appreciated on the left side. Right side is clear to auscultation without wheezes, crackles, or rhonchi. CARDIOVASCULAR: Heart has a regular rate and rhythm without murmurs, rubs, or gallops. ABDOMEN: Abdomen is soft and nontender to palpation. EXTREMITIES: Trace lower extremity edema appreciated bilaterally. PSYCH: The patient is alert and appropriately oriented. SKIN: Limited exam shows no concerning rashes or lesions. LABORATORY DATA: CBC and comprehensive metabolic panel are pending at this time. IMAGING: Initial chest x-ray from 1:45 this morning is read as large left pleural effusion with left lower lobe consolidation. Repeat chest x-ray from 1705 this evening shows improved appearing effusion, still rather significant consolidation in the left lower lobe. ASSESSMENT AND PLAN: This is a 61-year-old female with a history of inflammatory breast cancer with a recurrent left-sided pleural effusion with concern for most likely a new lung malignancy. The patient has significant compressive atelectasis secondary to her effusion, was noted to be hypoxic and tachycardic. She will be admitted to ICU following bronchoscopy today. 1. Recurrent left-sided pleural effusion with compressive atelectasis - the patient has a PleurX catheter in place, which is currently capped. Still hooked up to drainage if necessary if the patient's effusion accumulates quickly overnight. She is currently requiring 10 L via oxygen mask to maintain saturations in the low to mid 90s. She is tachypneic, but her respiratory rate does seem to be improving. Also noted tachycardia. She appears to be fairly comfortable with this. Discussed the case with Dr. Judd. We will plan to admit to ICU. Maintain on an oxygen mask at this time. If she becomes more hypoxic, we can try some positive pressure with high flow oxygen in order to recruit some additional alveoli. No obvious obstruction appreciated on bronchoscopy. Her lung collapse is likely compressive in nature at this time. 2. Suspected lung malignancy - visualized endobronchial involvement on bronchoscopy. JERRELL evaluation was positive for malignancy. Findings have been discussed with the patient. She has liver lesions concerning for possible metastatic involvement. Pleural fluid has been sent for additional cytology. The patient has been seen by Dr. Sorensen in followup since her hospital admission and he is aware of her admission again today and will plan to see the patient tomorrow to help review appropriate disposition. 3. History of inflammatory breast cancer. 4. Code status. The patient is full code. 5. Healthcare proxy is the patient's . 6. DVT prophylaxis: The patient is at moderate to high risk for DVT and will be placed on 40 mg of Lovenox subcu daily. 7. Disposition - the patient will be admitted to the ICU for additional observation overnight. She will remain on oxygen via mask. Pending Oncology consultation tomorrow. The patient will likely require supplemental oxygen at home and PleurX catheter to remain in place as this is likely a malignant effusion and will continue to reaccumulate. VENICE BURNS CC: Dr. Judd; Raphael Sorensen MD* [id number]/[facility] #: [id number] [facility]
--- NOTE | 2016-06-18 04:03 | PRO ---
THORACENTESIS REPORT: DATE OF PROCEDURE: 06/17/16- in PACU PROCEDURE PERFORMED BY: Rupal Judd MD PROCEDURE PERFORMED: Thoracentesis on the left side with ultrasound guidance. PREPROCEDURAL DIAGNOSES: Large left pleural effusion, shortness of breath. ANESTHESIA: Local anesthesia with 1% lidocaine. DESCRIPTION OF PROCEDURE: Informed consent was obtained from the patient prior to the procedure after all the risks and benefits were thoroughly explained. The patient was scheduled for EBUS bronchoscopy today for evaluation of mediastinal lymph nodes. The patient was significantly tachypneic and tachycardic upon arrival. Further evaluation revealed decreased breath sounds on the left side. Large left pleural fluid was noted under ultrasound visualization. Thoracentesis was performed at bedside after informed consent and appropriate time-out was performed. The patient was sitting up leaning forwards. Strict aseptic precautions and barrier precautions were utilized. Local anesthesia was achieved with 1% lidocaine transdermally, intradermally and down into the pleural space. A #11 scalpel blade was utilized to perform stab incision in the back. CareFusion 8-Guyanese thoracentesis catheter was then inserted under manual suction. Serosanguineous fluid was drained from the left lung under manual suction. 1 L of fluid was drained. The patient had cough towards the end of the procedure. Procedure was aborted and chest x-ray was ordered and was performed and is pending interpretation. The patient is on supplemental oxygen with O2 sats in high 90s. [id number]/CPS #: [id number] MTDD
[2016-06-18 05:42] LABS: Hematocrit 36 % (35-47); Hemoglobin 12.2 g/dl (12.0-16.0); Mean Corpuscular HGB Conc 34 g/dl (31-36); Mean Corpuscular Hemoglobin 29 pg (27-31); Mean Corpuscular Volume 87 fL (80-97); Mean Platelet Volume 7 um3 (7.4-10.4); Red Blood Count 4.16 10^6/ul (4.0-5.4); Red Cell Distribution Width 13 % (10.5-15); White Blood Count 10.3 10^3/ul (3.5-10.8)
[2016-06-18 05:55] LABS: BUN/Creatinine Ratio 23.7 (8-20); Calcium 9.1 mg/dL (8.6-10.3); EGFR African American 133.3 (>60); EGFR Non-African American 103.6 (>60); Potassium 4.2 mmol/L (3.5-5.0)
--- NOTE | 2016-06-18 06:00 | PRO ---
BRONCHOSCOPY REPORT: DATE OF PROCEDURE: 06/17/16 PROCEDURE PERFORMED BY: Rupal Judd MD PROCEDURE PERFORMED: Bronchoscopy with endobronchial ultrasound-guided fine- needle aspiration of mediastinal nodes. PREPROCEDURAL DIAGNOSES: Mediastinal adenopathy, bilateral pleural effusions in a smoker for evaluation of malignancy. ANESTHESIA: General anesthesia. Size 8.5 ET tube. ANESTHESIOLOGIST: Dr. Pearson. Refer to anesthesiologist's note for further details. PROCEDURE IN DETAIL: Informed consent was obtained from the patient prior to the procedure after all the risks and benefits were thoroughly explained. The patient with significant smoking history and history of breast cancer with mediastinal and hilar adenopathy, bilateral pleural effusions. The patient had thoracentesis 2 weeks ago, was quite dyspneic prior to EBUS. The patient was found to have large left-sided pleural effusion. A bedside ultrasound-guided thoracentesis was performed by me. Please refer to separately dictated procedure note. The patient was noted to have trapped lung after the procedure and had Pleurx catheter placed given recurrent pleural effusions and high suspicion for malignancy. It was performed after patient had Pleurx catheter placed on the left side with Dr. Rojas. Please refer to his note for further details. After the patient was intubated with size 8.5 ET tube, flexible bronchoscope was inserted for airway inspection. Right-sided airway looked patent and open. The patient noted to have mucosal and submucosal involvement with possible endobronchial spread of tumor on left lung. She also noted to have narrowed distal left main stem bronchus. The patient also noted to have narrowed left lower lobe and upper lobe bronchus. Mucosa and submucosa appeared thickened and irregular possibly with endobronchial involvement of cancer. Flexible bronchoscope was then withdrawn and EBUS bronchoscope was inserted. Bronchoscope was advanced and station R4 lymph node was accessed given high likely suspicious for malignancy of left lung. R4 lymph node was accessed with 5 passes. Adequate lymphatic tissue and malignant cells were noted on rapid on-site evaluation. Station 7 lymph node was then accessed with 4 passes. Adequate lymphatic tissue and malignant cells were noted on rapid on- site evaluation. No endobronchial biopsies were needed and were not performed. The patient had minimal bleeding during the procedure. The patient was extubated and seen in recovery unit in optimal condition. She will be admitted for close observation overnight. [id number]/[facility] #: [id number] [facility]
--- NOTE | 2016-06-18 08:15 | RAD ---
Indication: Reassess pleural effusion and lung compression. Lung carcinoma. Chemotherapy and radiation. Additional history of breast carcinoma. Comparison: June 17, 2016 chest radiograph and May 29, 2016 CT. Technique: Upright AP 0620 hours Report: Prominent bilateral mediastinal contours corresponding with confluent bulky mediastinal or hilar lymphadenopathy and mass extending to the periphery of the LEFT mid to lower lung zone based on correlation with prior CT. LEFT side large bore chest tube remains in place with the tip near the apex medially. Extensive associated LEFT chest wall and neck subcutaneous emphysema. No definitive pneumothorax evident. Small bilateral pleural effusions without gross change. Peripherally extending mass from the LEFT hilum and cardiomegaly obscures the LEFT lower lung zone limiting assessment of the LEFT lower lobe and lingula. No gross abnormality of the partially obscured central pulmonary vasculature. IMPRESSION: No significant interval change compared with the prior exam. LEFT chest tube remains in place. No gross evidence for pneumothorax. Prominent bilateral mediastinal contours corresponding with confluent bulky mediastinal or hilar lymphadenopathy and mass extending to the periphery of the LEFT mid to lower lung zone based on correlation with prior CT.
--- NOTE | 2016-06-18 08:28 | OP ---
DATE OF OPERATION/CONSULTATION: 06/17/16 - ROOM #ICU-01 DATE OF : 55 SURGEON: Panda Rojas MD PRE-OP DIAGNOSIS: POST-OP DIAGNOSIS: OPERATIVE PROCEDURE: HISTORY: The patient is a 61-year-old female with a history of breast carcinoma , has been treated over the years by Dr. Sorensen, has presented with mediastinal adenopathy and pleural effusion and dyspnea. Dr. Judd was planning to do an endobronchial ultrasound biopsy. Because of the dyspnea and the large effusion , she did perform a left-sided thoracentesis. Following the thoracentesis, there was residual hydropneumothorax, probably because of poor expansion of the lung, so Dr. Judd asked me to see her and evaluate her. At that time she had almost no breath sounds on the left, still large effusion on the film. She was not in any grave distress. I discussed with Dr. Judd about the patient and it was decided that PleurX catheter would be placed. This would help reexpand the lung, help drain the additional fluid and serve going forward given the likelihood of this being a chronic recurrent condition given the repeat thoracenteses that the patient has required. DESCRIPTION OF PROCEDURE: Therefore, the patient was taken to the operating room. She was supine but with her left arm brought across towards her right shoulder and a roll placed under her scapula. The left lateral chest was prepped with antiseptic, draped in a sterile fashion. Local infiltrative anesthesia was administered and the pleural fluid was readily identified with a needle. Guidewire was placed, introducer was placed, and then the catheter was tunneled and placed into the left chest cavity. The initial entry site was closed with 4-0 Vicryl, and the exit site silk suture was used to suture the catheter. Catheter was hooked to suction and another liter of fluid was forthcoming. Dr. Judd then continued with her part of the procedure. A sterile dressing was placed. CC: Panda Rojas MD; Rupal Judd MD; Raphael Sorensen MD* [id number]/CPS #: [id number] MTDD
[2016-06-18] MEDS: oxyCODONE SR TAB(*) 10 MG TAB.SR PO SCH ×2 (08:37→21:30)
--- NOTE | 2016-06-18 10:17 | PN ---
Progress Note - Progress Note SOAP: Subjective: []Better. Breathing is better. Not in pain. Anxious about going home but wants to leave. Her Sister, Mohan Davis ([phone]) is with her and self identified as a care technician. in today as well. She was using oxygen at home. Docusate Sodium (Colace Cap*) 100 mg PO BID PRN PRN Reason: CONSTIPATION Enoxaparin Sodium (Lovenox(*)) 40 mg SUBCUT Q24H [facility] Last Admin: 06/17/16 20:50 Dose: 40 mg Levalbuterol HCl (Xopenex 1.25 Mg/0.5 Ml Neb.Daphne*) 1.25 mg INH Q4H PRN PRN Reason: SOB/WHEEZING Morphine Sulfate (Morphine Inj (Syringe)*) 2 mg IV Q4H PRN PRN Reason: PAIN Last Admin: 06/17/16 21:30 Dose: 2 mg Ondansetron HCl (Zofran Inj*) 4 mg IV Q4H PRN PRN Reason: NAUSEA/VOMITING Oxycodone HCl (Oxycontin(*)) 10 mg PO Q12HR [facility] Last Admin: 06/18/16 08:37 Dose: 10 mg Objective: [] Vital Signs Temp Pulse Resp BP Pulse Ox 97.4 F 126 20 105/47 96 06/18/16 07:43 06/18/16 09:20 06/18/16 09:20 06/18/16 06:00 06/18/16 09:20 HEENT - O2NC, no thrush, no JVD, no LAD Decreased sounds on left and right is CTA, no wheezing RRR S1S2 +BS NT/ND, obease Ext w/ clubbing, no edema Assessment: []61 year old likly lung cancer, stage IV, with pleural effusion. Now with Bx of LN and pleurex catheter. Pathology pending from LN bx and pleural fluid. Would be helpful to have positive cytology to confirm metastatic disease but not essential. Will treat as palliative regardless. Ddx: SSLC, NSCLC most likely. Primary med lymphoma and recurrent breast cancer unlikely. Discussed with family, no surgery, possible role for radiation and chemotherapy. Plan: []1. Plan discharge with Pleurex catheter. Possible home O2 2. Sister can help with home care 3. Pain controlled 4. Will have her come into [facility] on late Tuesday to plan care, hope to have some results of bx at that time.
--- NOTE | 2016-06-18 10:41 | PN ---
Progress Note - Progress Note Note: Pulm consult f/u note 06/18/16. Pt was seen and examined at bedside this am. Pt reports improvement in breathing. Occasional cough and chest discomfort associated with it. FiO2 requirements are improved Active Medications Generic Name Dose Route Start Last Admin Trade Name Freq PRN Reason Stop Dose Admin Docusate Sodium 100 mg 06/17/16 17:48 Colace Cap* PO BID PRN CONSTIPATION Enoxaparin Sodium 40 mg 06/17/16 18:00 06/17/16 20:50 Lovenox(*) SUBCUT 40 mg Q24H CHRISTY Administration Levalbuterol HCl 1.25 mg 06/17/16 17:47 Xopenex 1.25 Mg/0.5 Ml Neb.Daphne* INH Q4H PRN SOB/WHEEZING Morphine Sulfate 2 mg 06/17/16 17:40 06/17/16 21:30 Morphine Inj (Syringe)* IV 2 mg Q4H PRN Administration PAIN Ondansetron HCl 4 mg 06/17/16 17:40 Zofran Inj* IV Q4H PRN NAUSEA/VOMITING Oxycodone HCl 10 mg 06/17/16 21:00 06/18/16 08:37 Oxycontin(*) PO 10 mg Q12HR CHRISTY Administration Vital Signs Temp Pulse Resp BP Pulse Ox 97.4 F 126 20 105/47 96 06/18/16 07:43 06/18/16 09:20 06/18/16 09:20 06/18/16 06:00 06/18/16 09:20 O/E: Pt in NAD, coughing intermittently HEENT: PERRLA, No JVD Lungs: diminshed a/e at bases L>R, Lt pleurex in place, improved aerating compared to yesterday CVS: S1, S2+ Abd: Soft, BS+ Ext: Normal ROM Neuro; drowsy, no focal defecits Laboratory Results - last 24 hr 06/17/16 06/17/16 06/18/16 20:00 20:00 05:25 WBC 14.8 H RBC 4.15 Hgb 12.3 Hct 36 MCV 88 MCH 30 MCHC 34 RDW 13 Plt Count 273 MPV 7 L Neut % (Auto) 88.7 H Lymph % (Auto) 4.6 L Stephenson % (Auto) 6.1 Eos % (Auto) 0.1 Baso % (Auto) 0.5 Absolute Neuts (auto) 13.1 H Absolute Lymphs (auto) 0.7 L Absolute Monos (auto) 0.9 H Absolute Eos (auto) 0 Absolute Basos (auto) 0.1 Absolute Nucleated RBC 0.04 Nucleated RBC % 0.3 Sodium 133 134 Potassium 4.2 4.2 Chloride 97 L 97 L Carbon Dioxide 30 30 Anion Gap 6 7 BUN 12 14 Creatinine 0.54 0.59 Est GFR ( Amer) 147.6 133.3 Est GFR (Non-Af Amer) 114.8 103.6 BUN/Creatinine Ratio 22.2 H 23.7 H Glucose 110 H 91 Calcium 9.1 9.1 Total Bilirubin 0.50 AST 25 ALT 23 Alkaline Phosphatase 109 H Total Protein 6.0 L Albumin 2.9 L Globulin 3.1 Albumin/Globulin Ratio 0.9 L 06/18/16 05:25 WBC 10.3 RBC 4.16 Hgb 12.2 Hct 36 MCV 87 MCH 29 MCHC 34 RDW 13 Plt Count 267 MPV 7 L Neut % (Auto) 84.9 H Lymph % (Auto) 7.5 L Stephenson % (Auto) 7.3 Eos % (Auto) 0.1 Baso % (Auto) 0.2 Absolute Neuts (auto) 8.7 H Absolute Lymphs (auto) 0.8 L Absolute Monos (auto) 0.7 Absolute Eos (auto) 0 Absolute Basos (auto) 0 Absolute Nucleated RBC 0 Nucleated RBC % 0 Sodium Potassium Chloride Carbon Dioxide Anion Gap BUN Creatinine Est GFR ( Amer) Est GFR (Non-Af Amer) BUN/Creatinine Ratio Glucose Calcium Total Bilirubin AST ALT Alkaline Phosphatase Total Protein Albumin Globulin Albumin/Globulin Ratio CXR: LLL atelectasis, subcutaneous air on left side, pleurex catheter in place I/R: 61 y o f with metastatic disease, primary unknown as biopsies are pending, likely lung s/p thoracentesis for therapeutic and diagnostic reasons 06/17/16 followed by pleurex catheter placement and EBUS bronchoscopy with JERRELL findings of metastatic disease, differentials- small cell versus NSCL(adeno) FiO2 requirement improved however will need to be d/c ed on home O2 Will need to cap pleurex catheter and apply new dressing She might need home care nurse arrangements to help with drainage Oncology following Pain mx as needed Possible palliative chemo XRT once final dx from biopsy and pleural fluid cytology She would like to be d/c ed home CXR showed atlectatic LLL and subcutaneous air Drainage as pleurex if resp distress
[2016-06-18] MEDS ORDERED: NS 0.9% 1000 ML* 1,000 ML IV SCH (11:45)
[2016-06-18] MEDS: Morphine INJ* 2 MG/ML 1 ML CARPUJECT IV PRN ×2 (14:48→21:34)
--- NOTE | 2016-06-18 14:51 | PN ---
Subjective Date of Service: 06/18/16 Interval History: Ms. Pimentel states that she is feeling better today. She states that her breathing is much easier and she is able to ambulate short distances now. She denies chest pain. She is tolerating oral intake well and denies nausea, vomiting, or abdominal pain. Objective Active Medications: Docusate Sodium (Colace Cap*) 100 mg PO BID PRN Enoxaparin Sodium (Lovenox(*)) 40 mg SUBCUT Q24H [facility] Sodium Chloride (Ns 0.9% 1000 Ml*) 1,000 mls @ 250 mls/hr IV PER RATE [facility] Levalbuterol HCl (Xopenex 1.25 Mg/0.5 Ml Neb.Daphne*) 1.25 mg INH Q4H PRN Morphine Sulfate (Morphine Inj (Syringe)*) 2 mg IV Q4H PRN Ondansetron HCl (Zofran Inj*) 4 mg IV Q4H PRN Oxycodone HCl (Oxycontin(*)) 10 mg PO Q12HR [facility] Vital Signs 06/17/16 06/17/16 06/17/16 16:25 16:30 16:35 Temperature 97.5 F Pulse Rate 128 128 134 Respiratory 20 22 27 Rate Blood Pressure 128/59 115/69 114/55 (mmHg) O2 Sat by Pulse 88 89 89 Oximetry 06/17/16 06/17/16 06/17/16 16:40 16:45 17:00 Temperature Pulse Rate 131 126 133 Respiratory 24 16 26 Rate Blood Pressure 132/60 141/41 122/42 (mmHg) O2 Sat by Pulse 90 88 88 Oximetry 06/17/16 06/17/16 06/17/16 17:15 17:18 17:30 Temperature Pulse Rate 130 128 Respiratory 23 22 21 Rate Blood Pressure 113/57 108/62 (mmHg) O2 Sat by Pulse 92 93 Oximetry 06/17/16 06/17/16 06/17/16 17:45 17:55 17:57 Temperature Pulse Rate 128 Respiratory 21 22 22 Rate Blood Pressure 111/36 (mmHg) O2 Sat by Pulse 94 Oximetry 06/17/16 06/17/16 06/17/16 18:00 18:22 18:26 Temperature Pulse Rate 125 126 126 Respiratory 21 Rate Blood Pressure 106/56 87/51 92/39 (mmHg) O2 Sat by Pulse 93 94 94 Oximetry 06/17/16 06/17/16 06/17/16 18:30 18:33 18:45 Temperature Pulse Rate 126 125 125 Respiratory 20 21 23 Rate Blood Pressure 91/21 93/44 112/39 (mmHg) O2 Sat by Pulse 92 94 94 Oximetry 06/17/16 06/17/16 06/17/16 18:46 19:00 19:15 Temperature 97.7 F Pulse Rate 126 123 121 Respiratory 26 20 20 Rate Blood Pressure 93/44 110/51 110/52 (mmHg) O2 Sat by Pulse 95 96 96 Oximetry 06/17/16 06/17/16 06/17/16 19:30 19:45 20:00 Temperature 98.9 F Pulse Rate 127 121 121 Respiratory 22 20 21 Rate Blood Pressure 106/40 107/60 (mmHg) O2 Sat by Pulse 96 96 97 Oximetry 06/17/16 06/17/16 06/17/16 20:01 20:30 20:45 Temperature Pulse Rate 120 122 122 Respiratory 23 23 22 Rate Blood Pressure 95/64 108/31 123/67 (mmHg) O2 Sat by Pulse 97 96 96 Oximetry 06/17/16 06/17/16 06/17/16 20:50 21:00 21:15 Temperature 99.8 F Pulse Rate 120 121 Respiratory 22 21 19 Rate Blood Pressure 117/30 111/40 (mmHg) O2 Sat by Pulse 95 95 Oximetry 06/17/16 06/17/16 06/17/16 21:30 22:00 22:05 Temperature 99.6 F Pulse Rate 121 124 124 Respiratory 20 20 19 Rate Blood Pressure 116/45 108/51 (mmHg) O2 Sat by Pulse 96 95 95 Oximetry 06/17/16 06/17/16 06/17/16 22:15 22:17 22:30 Temperature Pulse Rate 123 123 123 Respiratory 21 20 20 Rate Blood Pressure 101/49 113/42 (mmHg) O2 Sat by Pulse 96 96 95 Oximetry 06/17/16 06/17/16 06/17/16 22:46 23:00 23:03 Temperature Pulse Rate 123 123 123 Respiratory 19 20 20 Rate Blood Pressure 101/54 99/51 (mmHg) O2 Sat by Pulse 95 94 96 Oximetry 06/17/16 06/18/16 06/18/16 23:52 00:00 00:01 Temperature 97.6 F Pulse Rate 120 119 Respiratory 21 21 Rate Blood Pressure 111/63 (mmHg) O2 Sat by Pulse 95 96 Oximetry 06/18/16 06/18/16 06/18/16 01:00 01:14 02:00 Temperature Pulse Rate 118 119 118 Respiratory 15 19 13 Rate Blood Pressure 107/61 104/55 (mmHg) O2 Sat by Pulse 96 97 96 Oximetry 06/18/16 06/18/16 06/18/16 03:00 04:00 05:00 Temperature 97.4 F Pulse Rate 118 121 117 Respiratory 18 22 17 Rate Blood Pressure 109/62 93/40 90/40 (mmHg) O2 Sat by Pulse 99 97 97 Oximetry 06/18/16 06/18/16 06/18/16 06:00 07:00 07:43 Temperature 97.4 F Pulse Rate 118 126 Respiratory 20 25 Rate Blood Pressure 105/47 100/39 (mmHg) O2 Sat by Pulse 98 98 Oximetry 06/18/16 06/18/16 06/18/16 08:00 08:37 09:00 Temperature Pulse Rate 121 124 Respiratory 21 24 21 Rate Blood Pressure 99/44 100/85 (mmHg) O2 Sat by Pulse 97 96 Oximetry 06/18/16 06/18/16 06/18/16 09:20 10:00 11:00 Temperature Pulse Rate 126 127 123 Respiratory 20 27 23 Rate Blood Pressure 111/93 95/48 (mmHg) O2 Sat by Pulse 94 94 96 Oximetry 06/18/16 06/18/16 06/18/16 11:17 12:00 13:00 Temperature 97.4 F Pulse Rate 117 112 Respiratory 24 18 Rate Blood Pressure 105/44 101/56 (mmHg) O2 Sat by Pulse 92 91 Oximetry Oxygen Devices in Use Now: None Appearance: Female sitting up in chair in NAD Respiratory: Symmetrical Chest Expansion and Respiratory Effort, - - Diminished on the left, clear on the right Cardiovascular: NL Sounds; No Murmurs; No JVD, No Edema Abdominal: NL Sounds; No Tenderness; No Distention Extremities: No Edema Skin: No Rash or Ulcers, - - pleurx catheter to left low chest wall Neurological: Alert and Oriented x 3, NL Muscle Strength and Tone Nutrition: Taking PO's Result Diagrams: 06/18/16 05:25 06/18/16 05:25 Microbiology and Other Data: Microbiology 06/17/16 20:50 Nasal Screen MRSA (PCR)(MILLICENT) - Final Nasal Mrsa Negative Assess/Plan/Problems-Billing Assessment: Ms. Pimentel is a 61 yo female with a PMH of inflammatory breast cancer who was admitted on 06/17/16 with a recurrent left sided pleural effusion s/p thoracentesis for 1L fluid with placement of pleurx catheter for compressive atlectasis with suspicion for new lung cancer. - Patient Problems (1) Pleural effusion Comment: Now s/p thoracentesis for 1L fluid and pleurx cath for compressive atelectasis. Patient feels much better today, breathing much easier, currently off O2 while at rest. High likelihood for malignancy. Patient to follow up with Dr. Sorensen on Tuesday. (2) DVT prophylaxis Comment: Lawson (3) Full code status Status and Disposition: Inpatient with expected LOS > 2 days. Home when medically stable.
[2016-06-18] MEDS: Enoxaparin(*) 40 MG/0.4 ML SYR SUBCUT SCH (18:34)
[2016-06-18] MEDS: Docusate CAP* 100 MG PO PRN (21:31)
[2016-06-19 07:38] VITALS: BP 128/41
[2016-06-19] MEDS: oxyCODONE SR TAB(*) 10 MG TAB.SR PO SCH (07:47)
[2016-06-19] MEDS: Docusate CAP* 100 MG PO PRN (07:54)
--- NOTE | 2016-06-19 12:17 | PN ---
Subjective Date of Service: 06/19/16 Interval History: Ms. Pimentel states that she is feeling relatively well today. Her shortness of breath is minimal with activity; she denies chest pain. She denies nausea or abdominal pain and is tolerating oral intake well. She remains nervous about going home with the pleurx catheter. Objective Active Medications: Docusate Sodium (Colace Cap*) 100 mg PO BID PRN Enoxaparin Sodium (Lovenox(*)) 40 mg SUBCUT Q24H [facility] Levalbuterol HCl (Xopenex 1.25 Mg/0.5 Ml Neb.Daphne*) 1.25 mg INH Q4H PRN Morphine Sulfate (Morphine Inj (Syringe)*) 2 mg IV Q4H PRN Ondansetron HCl (Zofran Inj*) 4 mg IV Q4H PRN Oxycodone HCl (Oxycontin(*)) 10 mg PO Q12HR [facility] Vital Signs 06/18/16 06/18/16 06/18/16 13:00 14:48 16:00 Temperature Pulse Rate 112 Respiratory 18 28 Rate Blood Pressure 101/56 (mmHg) O2 Sat by Pulse 91 96 Oximetry 06/18/16 06/18/16 06/18/16 17:15 19:33 20:00 Temperature 96.9 F 99.0 F Pulse Rate 117 109 Respiratory 24 24 16 Rate Blood Pressure 130/63 130/63 (mmHg) O2 Sat by Pulse 96 96 Oximetry 06/18/16 06/18/16 06/18/16 20:45 21:30 21:34 Temperature 97.3 F Pulse Rate 116 Respiratory 16 20 20 Rate Blood Pressure 126/65 (mmHg) O2 Sat by Pulse 98 Oximetry 06/18/16 06/18/16 06/19/16 22:34 23:30 00:00 Temperature Pulse Rate Respiratory 20 20 Rate Blood Pressure (mmHg) O2 Sat by Pulse 95 Oximetry 06/19/16 06/19/16 06/19/16 00:08 01:42 04:10 Temperature 98.3 F 98.1 F Pulse Rate 111 111 116 Respiratory 22 14 21 Rate Blood Pressure 121/37 118/54 (mmHg) O2 Sat by Pulse 97 95 97 Oximetry 06/19/16 06/19/16 06/19/16 07:37 07:47 08:00 Temperature Pulse Rate 118 Respiratory 16 18 20 Rate Blood Pressure 128/41 (mmHg) O2 Sat by Pulse 97 96 Oximetry 06/19/16 06/19/16 08:52 09:47 Temperature Pulse Rate 112 Respiratory 20 18 Rate Blood Pressure (mmHg) O2 Sat by Pulse 96 Oximetry Oxygen Devices in Use Now: None Appearance: Female lying in bed in NAD Respiratory: Symmetrical Chest Expansion and Respiratory Effort, - - Diminished on left, clear otherwise Cardiovascular: NL Sounds; No Murmurs; No JVD, No Edema Abdominal: NL Sounds; No Tenderness; No Distention Extremities: No Edema Skin: No Rash or Ulcers Neurological: Alert and Oriented x 3, NL Muscle Strength and Tone Nutrition: Taking PO's Result Diagrams: 06/18/16 05:25 06/18/16 05:25 Microbiology and Other Data: Microbiology 06/17/16 20:50 Nasal Screen MRSA (PCR)(MILLICENT) - Final Nasal Mrsa Negative Assess/Plan/Problems-Billing Assessment: Ms. Pimentel is a 61 yo female with a PMH of inflammatory breast cancer who was admitted on 06/17/16 with a recurrent left sided pleural effusion s/p thoracentesis for 1L fluid with placement of pleurx catheter for compressive atlectasis with suspicion for new lung cancer. - Patient Problems (1) Pleural effusion Comment: Now s/p thoracentesis for 1L fluid and pleurx cath for compressive atelectasis. Patient feels much better today, breathing much easier, currently off O2 while at rest. Plan to attempt to remove any further fluid with nursing staff today, will provide opportunity for further teaching with family. High likelihood for malignancy. Patient reassured that she can return to the emergency room if she becomes short of breath at home. Patient to follow up with Dr. Sorensen on Tuesday. (2) DVT prophylaxis Comment: Lawson (3) Full code status Status and Disposition: Inpatient with expected LOS > 2 days. Home when medically stable.
--- NOTE | 2016-06-20 01:51 | DS ---
HOSPITAL MEDICINE DISCHARGE SUMMARY: DATE OF ADMISSION: 06/17/16 DATE OF DISCHARGE: 06/19/16 ATTENDING PHYSICIAN: Jc Wilson MD *(dictation provided by Maureen Pearson NP) . PRIMARY DIAGNOSES: 1. Large left-sided pleural effusion status post thoracentesis and Pleurx catheter placement. 2. Suspected lung cancer, pathology pending. SECONDARY DIAGNOSES: 1. History of inflammatory breast cancer in the right breast status post mastectomy, chemotherapy and radiation. 2. History of hysterectomy. MEDICATIONS: No changes. 1. Ventolin 2 puffs inhaled q.4 hours p.r.n. shortness of breath. 2. Docusate 100 mg p.o. b.i.d. 3. Dilaudid 2 mg p.o. q.4 hours p.r.n. pain. 4. OxyContin 10 mg p.o. q.12 hours. HOSPITAL COURSE: Ms. Pimentel is a 61-year-old female with A past medical history of inflammatory breast cancer and recent admission to the hospital for community acquired pneumonia with left-sided pleural effusion who presented to Dr. Judd's office, mildly tachycardic and tachypneic. An ultrasound performed by Dr. Judd showed a large pleural effusion. Dr. Judd performed a thoracentesis and removed 1 L of pleural fluid, chest x-ray performed after which showed compressive atelectasis. Dr. Judd performed a bronchoscopy which showed extensive endobronchial involvement with JERRELL performed during the bronchoscopy positive for malignancy. The patient was admitted to the hospital. She was seen by Dr. Rojas who placed a Pleurx catheter along the left side. There was no significant drainage. With all this, she was feeling much better. She is complaining of no shortness of breath. Her pain is resolved. She is able to ambulate for short distances in her room off room air. The patient was seen in consultation by Dr. Sorensen while here in the hospital as well. He has high suspicion for lung cancer and the patient will be following up with him on Tuesday next week. Mrs. Pimentel and her have received training on these and emptying of the Pleurx catheter and they understand that they should attempt to drain if the patient has significant shortness of breath or chest pain. The patient is experiencing some anxiety around doing this independently at home and I have reassured her that she can come to the emergency room should she have any difficulties. The patient will have oxygen provided by [facility] [place] and [facility] services will be following starting as of Tuesday. Ms. Pimentel is medically stable for discharge to home. Follow up with Dr. Sorensen on Tuesday. DISPOSITION: Home. DIET: Regular. ACTIVITY: As tolerated. FOLLOWUP PLAN: Please follow up with Dr. Sorensen on Tuesday regarding suspected new diagnosis of lung cancer. TIME SPENT: Approximately 60 minutes was spent on the discharge of this patient ; more than half the time spent with her and her at the bedside, reviewing the events leading up to and during this hospitalization, performing physical examination, and reviewing my plan of care. MAUREEN PEARSON NP CC: Raphael Sorensen MD; Dr. Judd* [id number]/CPS #: [id number] MTDD
== END 2016-06-19 13:50 | disposition home or self-care (01) | DRG 952 ==
LOC: OR 11:33 → ICU 18:35 → MED 06-18 16:58
PROVIDERS: ADMIT Internal Medicine; ATTEND Internal Medicine
PROC: 0W9B30Z Drainage of Left Pleural Cavity with Drainage Device, Percutaneous Approach (ICD-10-PCS; 2016-06-17)
PROC: 07B74ZX Excision of Thorax Lymphatic, Percutaneous Endoscopic Approach, Diagnostic (ICD-10-PCS; 2016-06-17)
PROC: 0W9B3ZZ Drainage of Left Pleural Cavity, Percutaneous Approach (ICD-10-PCS; principal; 2016-06-17 13:30)
DX: C34.82 Malignant neoplasm of overlapping sites of left bronchus and lung (principal); C78.7 Secondary malignant neoplasm of liver and intrahepatic bile duct; J91.0 Malignant pleural effusion; Z99.81 Dependence on supplemental oxygen; J94.8 Other specified pleural conditions; J98.11 Atelectasis; F17.210 Nicotine dependence, cigarettes, uncomplicated; Z85.3 Personal history of malignant neoplasm of breast; Z92.3 Personal history of irradiation; Z92.21 Personal history of antineoplastic chemotherapy; Z79.891 Long term (current) use of opiate analgesic; Z79.899 Other long term (current) drug therapy; Z79.1 Long term (current) use of non-steroidal anti-inflammatories (NSAID); Z88.6 Allergy status to analgesic agent; Z88.8 Allergy status to other drugs, medicaments and biological substances; Z82.3 Family history of stroke; Z80.3 Family history of malignant neoplasm of breast
CPT/HCPCS: 36415; 71010; 80048; 80053; 85025; 87641; 88112; 88173; 88305; 88341; 88342; 94760; 99233; A9270-GY; J0690; J1650; J2250; J2270; J3010

== ENCOUNTER 2016-07-06 10:47 | Day surgery (SDC) | payer BC ==
[~2016-07-06 10:47] MED LIST changes: +Dexamethasone IV* 4 MG/ML 1 ML (4 MG) IV SLOW PU ONE; +Dexamethasone IV* 4 MG/ML 1 ML (4 MG) IV SLOW PU SCH; +Famotidine IV* 10 MG/ML 2 ML (20 mg) IV ONE; +Famotidine IV* 10 MG/ML 2 ML (20 mg) IV SCH; +ceFAZolin 2 GM PREMIX (*) 2 GM/50 ML BAG IVPB SCH
[2016-07-06] MEDS ORDERED: ceFAZolin 2 GM PREMIX (*) 0 GM/0 ML BAG IVPB ONE (12:06)
[2016-07-06] MEDS ORDERED: Midazolam* 1 MG/ML 5 ML VIAL (5 MG) ONE (12:15)
[2016-07-06] MEDS ORDERED: HYDROmorphone INJ* 1 MG/ML CARPUJECT SYRINGE ONE ×2 (12:15→13:59)
[2016-07-06] MEDS ORDERED: fentaNYL* 50 MCG/ML 2 ML VIAL (100 MCG VIAL) ONE (12:15)
[2016-07-06] MEDS ORDERED: Lidocain 1% EPI 1:100,000 * 30 ML MDV ONE (12:20)
[2016-07-06] MEDS ORDERED: Levalbuterol 1.25MG/0.5ML NEB ONE (12:34)
[2016-07-06] MEDS ORDERED: Levalbuterol 1.25MG/0.5ML NEB INH ONE (12:43)
[2016-07-06] MEDS ORDERED: DiMENhydriNATE IV* 50 MG/ML VIAL IV PUSH PRN (12:44)
[2016-07-06] MEDS ORDERED: fentaNYL* 50 MCG/ML 2 ML VIAL (100 MCG VIAL) IV PRN (12:44)
[2016-07-06] MEDS ORDERED: Scopolamine 1.5 mg* PATCH TRANSDERM PRN (12:44)
[2016-07-06] MEDS ORDERED: Ondansetron INJ* 2 MG/ML VIAL IV PRN (12:44)
[2016-07-06] MEDS ORDERED: Levalbuterol HFA INHALER* 1 PUFF MDI ONE (13:46)
[2016-07-06] MEDS ORDERED: VASOPRESSIN 20 UNITS/ML 1 ML VIAL ONE (13:53)
[2016-07-06] MEDS ORDERED: Esmolol* 10 MG/ML 10 ML (100 mg) ONE (14:03)
--- NOTE | 2016-07-06 14:23 | SURGPN ---
Brief Operative Note - Surgery Procedures: Procedures Pre-OP Diagnoses: small ceel lung cancer Post-op Diagnosis: same Procedure: Insertion of powerport, needle in, drainage of L pleural effusion via previously placed pleurx catheter Surgeon: Joaquin Asst: none Anethesia: local, AUTUMN Bravo EBL: minimal IVF: 1200cc LR Specimen: none Drains: none 8Fr single lumen power port via R SCV
[2016-07-06 15:08] LABS: Hematocrit 37 % (35-47); Hemoglobin 11.9 g/dl (12.0-16.0); Mean Corpuscular HGB Conc 33 g/dl (31-36); Mean Corpuscular Hemoglobin 29 pg (27-31); Mean Corpuscular Volume 89 fL (80-97); Mean Platelet Volume 8 um3 (7.4-10.4); Red Blood Count 4.09 10^6/ul (4.0-5.4); Red Cell Distribution Width 14 % (10.5-15)
--- NOTE | 2016-07-06 15:09 | RAD ---
INDICATION: PowerPort catheter placement COMPARISON: None FINDINGS: 44 seconds of fluoroscopy were provided for the surgical department. Fluoroscopic spot imaging of the chest were obtained for operative control and show expected course of the right-sided catheter. The tip projects over the superior vena cava. A follow-up chest x-ray is pending . CPT II Codes: 6045F (fluoro time doc)
--- NOTE | 2016-07-06 15:16 | RAD ---
INDICATION: Power port placement. COMPARISON: Comparison is made with a prior chest x-ray study from July 16, 2016. TECHNIQUE: A portable view of the chest was obtained. FINDINGS: There is a power port central venous catheter present on the right side. The catheter tip projects over the region of the right atrium and demonstrates normal course. There also appears to be a chest tube present on the left side which appears unchanged in position. The lungs are underinflated. There is a small infiltrate at the right lung base which appears to be new from the prior exam. There is increased density present throughout the left lung and a small to moderate size left pleural effusion which appear unchanged. No pneumothorax is seen. IMPRESSION: 1. STATUS POST CENTRAL VENOUS CATHETER PLACEMENT. NO EVIDENCE FOR PNEUMOTHORAX. 2. BILATERAL INFILTRATES AND LEFT PLEURAL EFFUSION.
[2016-07-06 15:23] LABS: Albumin 3.1 g/dL (3.2-5.2); BUN/Creatinine Ratio 47.2 (8-20); EGFR African American 57.1 (>60); EGFR Non-African American 44.4 (>60); Globulin 3.4 g/dL (2-4); Magnesium 2.3 mg/dL (1.9-2.7); Phosphorus 6.5 mg/dL (2.5-5.0); Potassium 5.5 mmol/L (3.5-5.0); Total Bilirubin 0.5 mg/dL (0.2-1.0); Total Protein 6.5 g/dL (6.4-8.9)
[2016-07-06 15:24] LABS: Troponin I 0.03 ng/mL (<0.04)
[2016-07-06] MEDS ORDERED: Metoprolol Tartrate IV* 1 MG/ML 5 ML VIAL ONE (15:24)
[2016-07-06 16:14] VITALS: BP 122/82
--- NOTE | 2016-07-07 11:20 | OP ---
DATE OF OPERATION: 07/06/16 [facility] DATE OF : 55 SURGEON: Cesar Nuñez MD. [employer] TECHNICIAN: None. ANESTHESIOLOGIST: Dr. Bravo ANESTHESIA: Local, MAC. PRE-OP DIAGNOSIS: Small cell lung cancer. POST-OP DIAGNOSIS: Small cell lung cancer. OPERATIVE PROCEDURE: Insertion of PowerPort needle in and drainage of left pleural effusion via previously placed PleurX catheter. ESTIMATED BLOOD LOSS: Minimal. SPECIMEN: None. FLUIDS: 1200 cc of crystalloid fluid given. DRAINS: None. An 8-Guatemalan single lumen PowerPort placed via the right subclavian vein. DESCRIPTION OF PROCEDURE: The patient was identified in the preoperative area and marked. I discussed the case with her again. When we had last discussed it a week ago, the consideration was for placement of a Groshong catheter since the patient was quite ill and suffering with shingles. The patient has improved and comes today for intervention and I believe the PowerPort would be the more durable procedure for her, and I outlined the details of the procedure with her and her and they agreed and signed the consent. We spoke about the possible complications, which included, but not limited to bleeding, infection, hemothorax, pneumothorax, need for removal of the port and possible replacement. The patient was taken to the operating room, and placed on the operating table in a supine position. General sedation was given. The patient did complain at this point of some chest pain and had atrial fibrillation. This was managed with beta blockade. At this point, the Pleurx catheter on the left was accessed and approximately 300 mL of serous fluid was drawn off. This did improve the patient's saturation with her heart rate normalized and her chest pain resolved. We determined that the patient will be better off going forward with the surgery such that she can look towards more urgent chemotherapy. The patient's right upper chest and neck were prepped and draped in a standard surgical fashion. Sequential devices were placed on the bilateral lower extremities. Preoperative antibiotics were given. The patient was prepped and draped and a time-out was performed. The right subclavian vein was then accessed after injection of lidocaine for local block. Wire inserted and under fluoroscopy it was ensured to be in the superior vena cava. Next, an incision was made inferior to the wire. It was deepened down to the subcutaneous tissues and a pocket was made to house the PowerPort. Next, the wire was brought in through the separate stab incision and the vein was dilated with the supplied dilators under fluoroscopy. Next, the split-away catheter was inserted and an 8-Guatemalan tubing was inserted under fluoroscopy. Split-away catheter was removed. The tubing was cut to size and attached to the PowerPort, which had been previously flushed. It was placed into the pocket and sutured at the lateral aspect and the medial aspect. We aspirated blood easily and then flushed this with saline with the provided Queen needle. The wound was then irrigated. Hemostasis achieved and then the defect was reapproximated with 3-0 Polysorb suture followed by a 4-0 Monocryl subcuticular suture. Steri-Strips and sterile dressing were applied. An access needle was then inserted into the port, which was then flushed with heparinized saline. The patient tolerated the procedure well, was woken up in the OR and transferred to the PACU in stable condition. CC: Dr. Raphael Sorensen; [facility] * [id number]/[facility] #: [id number] DOUGLAS
[2016-07-09] MEDS ORDERED: Scopolamine PATCH Remove* 1 NOTE MISC PATCH OFF ONE (12:45)
== END 2016-07-06 16:00 | disposition home or self-care (01) ==
LOC: OR 10:47
PROVIDERS: ATTEND Surgery
DX: C34.92 Malignant neoplasm of unspecified part of left bronchus or lung (principal); Z87.891 Personal history of nicotine dependence; I48.91 Unspecified atrial fibrillation; R07.9 Chest pain, unspecified
CPT/HCPCS: 36415; 71010; 76000; 80053; 83735; 84100; 84484; 85025; 93005; A9270-GY; C1788; J0690; J1100; J1170; J1642; J2250; J3010; J3490

== ENCOUNTER 2016-07-06 15:45 | Inpatient (IN) | payer BC ==
[2016-07-06] MEDS ORDERED: LORazepam TAB(*) 0.5 MG PO PRN (17:32)
[2016-07-06] MEDS ORDERED: HYDROmorphone TAB* 2 MG PO PRN (17:32)
[2016-07-06] MEDS ORDERED: Acetaminophen TAB* 325 MG PO PRN (17:32)
[2016-07-06] MEDS ORDERED: Docusate CAP* 100 MG PO PRN (17:32)
[2016-07-06] MEDS ORDERED: Albuterol HFA INHALER* 8 gm MDI INH PRN (17:32)
[2016-07-06] MEDS ORDERED: Digoxin IV* 0.5 MG/2 ML AMP (0.25 MG/ML) IV SLOW PU ONE (17:34)
[2016-07-06] MEDS ORDERED: traZODone TAB* 50 MG TAB PO PRN (17:35)
[2016-07-06] MEDS ORDERED: Sodium Polystyrene ORAL.SOL* 15 GM/60 ML BTL PO ONE (17:37)
[2016-07-06 18:16] LABS: Hematocrit 35 % (35-47); Hemoglobin 11.4 g/dl (12.0-16.0); Mean Corpuscular HGB Conc 33 g/dl (31-36); Mean Corpuscular Hemoglobin 29 pg (27-31); Mean Corpuscular Volume 89 fL (80-97); Mean Platelet Volume 8 um3 (7.4-10.4); Red Cell Distribution Width 14 % (10.5-15); White Blood Count 15.5 10^3/ul (3.5-10.8)
[2016-07-06 18:30] LABS: Albumin 3.1 g/dL (3.2-5.2); BUN/Creatinine Ratio 52.5 (8-20); Calcium 9.8 mg/dL (8.6-10.3); EGFR African American 59.9 (>60); EGFR Non-African American 46.6 (>60); Globulin 3.4 g/dL (2-4); Magnesium 2.3 mg/dL (1.9-2.7); Potassium 5.5 mmol/L (3.5-5.0); Total Bilirubin 0.4 mg/dL (0.2-1.0); Total Protein 6.5 g/dL (6.4-8.9)
[2016-07-06] MEDS: NS 0.9% 1000 ML* 1,000 ML IV SCH (18:30)
[2016-07-06] MEDS: Allopurinol TAB* 300 MG PO SCH (18:30)
[2016-07-06] MEDS: Metoprolol Tartrate TAB* 25 MG PO SCH ×2 (18:30→23:53)
[2016-07-06] MEDS: Enoxaparin(*) 40 MG/0.4 ML SYR SUBCUT SCH (18:30)
[2016-07-06 19:15] LABS: Digoxin 0.2 ng/ml (0.8-2.0)
[2016-07-06] MEDS ORDERED: Metoprolol Tartrate TAB* 25 MG PO ONE (20:10)
[2016-07-06] MEDS: oxyCODONE SR TAB(*) 10 MG TAB.SR PO SCH (20:14)
[2016-07-07] MEDS: NS 0.9% 1000 ML* 1,000 ML IV SCH (02:21)
[2016-07-07] MEDS: Metoprolol Tartrate TAB* 25 MG PO SCH ×2 (06:00→13:21)
[2016-07-07] MEDS: oxyCODONE SR TAB(*) 10 MG TAB.SR PO SCH (08:18)
[2016-07-07] MEDS: ValACYclovir (*) 1 GM TAB PO SCH ×2 (08:19→11:12)
[2016-07-07] MEDS: Sertraline* 50 MG TAB PO SCH (08:19)
[2016-07-07] MEDS: Allopurinol TAB* 300 MG PO SCH (08:19)
[2016-07-07] MEDS ORDERED: NS 0.9% 1000 ML* 1,000 ML IV SCH ×2 (09:00→18:45)
[2016-07-07 10:03] LABS: Hematocrit 35 % (35-47); Hemoglobin 11.3 g/dl (12.0-16.0); Mean Corpuscular HGB Conc 32 g/dl (31-36); Mean Corpuscular Hemoglobin 29 pg (27-31); Mean Corpuscular Volume 90 fL (80-97); Mean Platelet Volume 8 um3 (7.4-10.4); Red Cell Distribution Width 14 % (10.5-15); White Blood Count 15.2 10^3/ul (3.5-10.8)
[2016-07-07 10:15] LABS: Albumin 3.2 g/dL (3.2-5.2); BUN/Creatinine Ratio 52.6 (8-20); Calcium 9.2 mg/dL (8.6-10.3); EGFR African American 50.4 (>60); EGFR Non-African American 39.2 (>60); Globulin 3.3 g/dL (2-4); Magnesium 2.4 mg/dL (1.9-2.7); Phosphorus 8.3 mg/dL (2.5-5.0); Potassium 5.2 mmol/L (3.5-5.0); Total Bilirubin 0.4 mg/dL (0.2-1.0); Total Protein 6.5 g/dL (6.4-8.9)
--- NOTE | 2016-07-07 10:25 | PN ---
Progress Note - Progress Note SOAP: Subjective: acutely confused. has no idea where she is or why. can not follow commands but denies any complaints. Objective: Vital Signs Temp Pulse Resp BP Pulse Ox 97.7 F 103 18 118/57 97 07/07/16 09:55 07/07/16 09:55 07/07/16 09:55 07/07/16 09:55 07/07/16 09:55 sitting up in chair, lethargic and confused perr dry OP, food on tongue diffuse rhonchi, poor inspiratory effort irr irr, tachy soft nt +bs clean pleurex dressing trace LE edema awake, lethargic, not oriented at all, not following commands but spontaneously moves extremities crusted shingles rash left side of neck Sodium 131 mmol/L (133-145) L 07/07/16 09:45 Potassium 5.2 mmol/L (3.5-5.0) H 07/07/16 09:45 BUN 72 mg/dL (6-24) H 07/07/16 09:45 Creatinine 1.37 mg/dL (0.51-0.95) H 07/07/16 09:45 Calcium 9.2 mg/dL (8.6-10.3) 07/07/16 09:45 Magnesium 2.4 mg/dL (1.9-2.7) 07/07/16 09:45 AST 51 U/L (13-39) H 07/07/16 09:45 ALT 62 U/L (7-52) H 07/07/16 09:45 Acetaminophen (Tylenol Tab*) 325 mg PO Q4H PRN PRN Reason: PAIN Albuterol (Ventolin Hfa Inhaler*) 2 puff INH Q4H PRN PRN Reason: SOB/WHEEZING Allopurinol (Zyloprim Tab*) 300 mg PO DAILY [facility] Last Admin: 07/07/16 08:19 Dose: 300 mg Docusate Sodium (Colace Cap*) 100 mg PO BID PRN PRN Reason: CONSTIPATION Last Admin: 07/06/16 18:30 Dose: 100 mg Enoxaparin Sodium (Lovenox(*)) 40 mg SUBCUT Q24H [facility] Last Admin: 07/06/16 18:30 Dose: 40 mg Hydromorphone HCl (Dilaudid Tab*) 2 mg PO Q4H PRN PRN Reason: breakthrough pain Lorazepam (Ativan Tab(*)) 0.5 mg PO Q6H PRN PRN Reason: ANXIETY/INSOMNIA Last Admin: 07/07/16 00:43 Dose: 0.5 mg Metoprolol Tartrate (Lopressor Tab*) 25 mg PO Q6H [facility] Last Admin: 07/07/16 06:00 Dose: 25 mg Oxycodone HCl (Oxycontin(*)) 10 mg PO Q12HR [facility] Last Admin: 07/07/16 08:18 Dose: 10 mg Pharmacy Profile Note (Scopolomine Patch Remove*) 1 note PATCH OFF Q72H [facility] Scopolamine (Transderm-Scop 1.5 Mg Patch*) 1 patch TRANSDERM Q72H [facility] Sertraline HCl (Zoloft*) 50 mg PO DAILY [facility] Last Admin: 07/07/16 08:19 Dose: 50 mg Trazodone HCl (Desyrel Tab*) 50 mg PO BEDTIME PRN PRN Reason: SLEEP Last Admin: 07/06/16 21:43 Dose: 50 mg Valacyclovir HCl (Valtrex 1 Gm(*)) 1 gm PO DAILY [facility] PRN Reason: Protocol Assessment: 61 yo F w small cell lung cancer on carbo/etoposide, started 07/05, admitted with Afib w RVR and now with altered mental status of unclear etiology. I would like to get a stat head CT and CTA to rule out SILVER BUFFER mets and PE. We will also get a blood gas to rule out hypercarbia as an etiology of her AMS. She may very well need to move into the ICU for closer observation. If this work up is unrevealing we will pursue LP given recent shingles exposure. -stat ABG -CTA and head CT -hold IVFs for now given rhonchi on exam -full code, will need to assess with HCP
[2016-07-07] MEDS ORDERED: Iodixanol* (CONTRAST) 320 MG/ML 100 ML SDV IV ONE (10:32)
--- NOTE | 2016-07-07 10:34 | ECHO ---
Patient: NIKKI MC [facility] Rec#: [id number] : 1955 Date: 07/07/2016 Age: 61y Height: 165.1 cm / 65.0 in Weight: 83.91 kg / 184.9 lbs Sex: F BSA: 1.91 Room#: 437 Admit Date#: 07/06/2016 Type: Inpatient Referring: Raphael Sorensen MD Reading: Digna Figueroa MD Health Insurance Agent: Ev Moran [facility] Transthoracic Echocardiogram Indication: Resp. Abn/ a-fib BP: 120/56 HR: 100 Rhythm: Tachycardia Findings History: Infammmatory breast cancer, s/p right mastectomy,chemo and radiation,s/p left thoracentesis 06/17/16 with placement of Pleurx catherter. This study was accomplished with pt. OOB in recliner. Technical Comments: The study was technically limited due to the patient's inability to lay in the left lateral decubitus position. Completed at 0950. Left Ventricle: The left ventricular chamber size is normal.lower limit of normal, appears small. Septal wall hypertrophy is observed. The estimated ejection fraction is 60-65%. The assessment of diastolic function is non-diagnostic. There is an E to A reversal in the mitral valve flow pattern suggestive of diastolic dysfunction. The patient was unable to perform a Valsalva maneuver. Left Atrium: The left atrial chamber size is normal. Right Ventricle: The right ventricle is not well visualized. The right ventricular global systolic function is normal. Right Atrium: The right atrium is not well visualized. Aortic Valve: The aortic valve is trileaflet. There is no evidence of aortic regurgitation. There is no evidence of aortic stenosis. Mitral Valve: The mitral valve structure is not well visualized. There is no evidence of mitral regurgitation. There is no evidence of mitral stenosis. Tricuspid Valve: The tricuspid valve structure is not well visualized. Pulmonic Valve: The pulmonic valve appears normal. There is no evidence of pulmonic regurgitation. There is no pulmonic stenosis. Pericardium: A pericardial effusion is visualized. There is a moderate pericardial effusion. May be moderate-large. Pericardial effusion notes( all measurements in centimeters): THEODORE @ RV 0.8-1.9 with a loculated area near the RV 1.1,@ LV 1.6-1.8,@LA1.8 with an echodense area near the LA measuring 1.2; SAX ant 1.6-2.6,post 0.9-2.0,inf-lat 2.7;A4C @ LV 3.3-3.7@ apex 1.9. There is a circumferential pericardial effusion.There is a rim of mixed echo density material that could represent organized/fibrionous effusion vs. epicardial fat, this is surrounded by a rim of pericardial fluid, measuring up to 3.3 cm in diameter. A left pleural effusion is present. There is a moderate pleural effusion. Aorta: There is no dilatation of the ascending aorta. The aortic arch is not well visualized. There is no dilation of the aortic root. Pulmonary Artery: The main pulmonary artery appears normal. Venous: The venous system is not well visualized. Conclusions The left ventricular chamber size is normal.lower limit of normal, appears small. The estimated ejection fraction is 60-65%. There is an E to A reversal in the mitral valve flow pattern suggestive of diastolic dysfunction. The right ventricular global systolic function is normal, no evidence on M mode of filling compromise. All valves show good function. There is a circumferential pericardial effusion, in apical views meansures up to 3.7 cm, at least moderate in size. No evidence of filling compromise noted (no tampanade physiology). No prior echo to compare. Measurements Name Value Normal Range RVIDd (AP) 2D 2.7 cm (0.9 - 2.6) IVSd (2D) 1.3 cm (0.6 - 1) LVPWd (2D) 0.9 cm (0.6 - 1) LVIDd (2D) 3.7 cm (3.6 - 5.4) LVIDs (2D) 1.5 cm - LV FS (2D) 54 % (25 - 45) Aortic Annulus 2 cm (1.4 - 2.6) Ao root diameter (2D) 2.9 cm (2.1 - 3.5) Ascending Ao 2.3 cm (2.1 - 3.4) LA dimension (AP) 2D 3.2 cm (2.3 - 3.8) Name Value Normal Range MV E-wave Vmax 0.7 m/sec - MV deceleration time 203 msec - MV A-wave Vmax 1 m/sec - MV E:A ratio 0.71 ratio - Name Value Normal Range AV Vmax 1.3 m/sec - AV VTI 22 cm - AV peak gradient 6.97 mmHg - AV mean gradient 3.69 mmHg - LVOT Vmax 1 m/sec - LVOT VTI 18.5 cm - LVOT peak gradient 3.93 mmHg - LVOT mean gradient 1.62 mmHg - Name Value Normal Range PV Vmax 0.6 m/sec - PV peak gradient 1.44 mmHg -
[2016-07-07 10:38] LABS: PCO2 Arterial 73 mmHg (35-45)
[2016-07-07] MEDS ORDERED: EPINEPHrine SYR 0.1 MG/ML* (1:10,000) SYRINGE ONE (11:35)
[2016-07-07] MEDS ORDERED: NS 0.9% 1000 ML* 2,000 ML IV ONE ×2 (12:04→14:15)
--- NOTE | 2016-07-07 12:13 | RAD ---
INDICATION: Altered mental status, small cell lung carcinoma. COMPARISON: Comparison is made with a prior CT angiogram of the chest from May 29, 2016. TECHNIQUE: A CT angiogram of the chest was performed with intravenous following intravenous injection of 80 ml of Visipaque 320 nonionic contrast. Contiguous axial sections were obtained from the lung apices through the lung bases. Images were reconstructed in the coronal and sagittal planes. FINDINGS: There is narrowing of the right and left main pulmonary artery secondary to surrounding tumor which appears similar to the prior study. No intraluminal filling defect is seen within the pulmonary arteries. There is no evidence for pulmonary embolism. The heart appears enlarged. There is a large pericardial effusion which has markedly increased in size from the prior study. The thoracic aorta is normal in caliber and demonstrates homogeneous contrast opacification. There is confluent lymphadenopathy throughout the mediastinum. There is a large area at the level of the aortic arch measuring 9.2 x 4.7 cm in size which previously measured 7.8 x 4.8 cm in size. There is also a large area in the subcarinal region measuring 10.6 x 5.6 cm which previously measured 10.8 x 5.3 cm. There is partial collapse of the left upper lobe which is new. There is a moderate right pleural effusion and a small left pleural effusion. There is a chest tube present on the left side located posterior medially within the pleural space. There is right lower lobe atelectasis. No significant focal osseous abnormality is seen. The results of this exam were discussed with the referring clinician. IMPRESSION: 1. LARGE PERICARDIAL EFFUSION SIGNIFICANTLY INCREASED IN SIZE FROM THE PRIOR STUDY. 2. NO EVIDENCE FOR PULMONARY EMBOLISM. THERE IS NARROWING OF BOTH THE RIGHT AND LEFT MAIN PULMONARY ARTERY SECONDARY TO SURROUNDING TUMOR WHICH APPEARS UNCHANGED SIGNIFICANTLY. 3. MARKED MEDIASTINAL LYMPHADENOPATHY DEMONSTRATING SLIGHT PROGRESSION. 4. PARTIAL COLLAPSE OF THE LEFT UPPER LOBE, NEW. 5. MODERATE SIZE RIGHT PLEURAL EFFUSION INCREASED IN SIZE. 6. SMALL LEFT PLEURAL EFFUSION, DECREASED IN SIZE, CHEST TUBE IN PLACE.
--- NOTE | 2016-07-07 12:20 | RAD ---
INDICATION: Altered mental status in a patient with small cell carcinoma COMPARISON: Most recent CT of the brain dated April 29, 2005 TECHNIQUE: Contiguous axial sections of the brain were obtained from the skull base to the vertex before and after the injection of 80 mL of Visipaque 320. FINDINGS: The noncontrast images are somewhat limited due to patient motion artifact. The ventricles, cisterns and sulci are within normal limits. The phoenix-white matter differentiation is adequately maintained and there is no sulcal effacement. No significant focal abnormality or mass effect is present. There is no evidence for intracranial hemorrhage. There are no suspicious enhancing lesions in the brain. No significant focal osseous abnormality is present. The visualized portion of the paranasal sinuses and mastoid air cells appear clear. IMPRESSION: Normal CT of the brain with and without contrast.
[2016-07-07 14:04] LABS: EPAP 7; FIO2 100; IPAP 14; Resp Rate 14
[2016-07-07 14:06] LABS: PCO2 Arterial 66 mmHg (35-45)
[2016-07-07] MEDS ORDERED: Propofol* 100 ML ONE (15:23)
[2016-07-07] MEDS ORDERED: fentaNYL* 50 MCG/ML 5 ML VIAL (250 MCG VIAL) ONE (15:30)
[2016-07-07] MEDS ORDERED: fentaNYL* 50 MCG/ML 2 ML VIAL (100 MCG VIAL) IV SLOW PU ONE ×2 (16:00→16:27)
--- NOTE | 2016-07-07 17:57 | CONSULT ---
Consult Consult: CRITICAL CARE MEDICINE DATE: 07/07/16 TIME: 1200 REFERRING PROVIDER: Santosh HISTORY OF PRESENT ILLNESS: 61 F with known metastatic small cell lung CA, admitted with afib rvr and electrolyte imbalance and failing state with worseing encephalpathy this am sent for stat head CT and workup. While down for CT, abg results revealed significant mixed acute acidosis. Dr. Frost alerted me to the case and after our discussion pt became less responsive in CT and CAT call initiated. On arrival she was bag mask with improved resp pattern. pupils reactive. moving her head. Rapid HR on monitor, likely afib. +pulse. Lungs shallow and dec bs. left pleurex cath. Ext cool to touch. port in place. She was awake but unable to follow commands. BP was low and IVF utilized. Resp pattern weakened and given 1/2 amp epi with improved bp and responsiveness. Was planning to intubate her there, but she began protruding tongue and combative against mac blade and therefore we felt more compelled to transfer to ICU with bag assist just for O2 support as she was maintaining her own regular but low resp pattern. CT reviewed and I remained with concerns for tamponade and acute resp failure combined which may turn very problematic with invasive pos pressure needs. More awake on arrival to icu and placed on bipap. was present and updated. BP holding. HR afib, rvr. 140s. Adequate volumes on bipap once left nares nasal trumpet placed by myself. sats holding. Bedside ultrasound with significant RV collapse and large pericardial effusion. Mod R pleural effusion. Receiving IVF bolus and pulse pressure widened some and HR came down. Held off on emergent pericardialcentesis at that time. Explained to . To foster improved ventilation with bipap, performed R thoracentesis. present for procedure. 300ml blood tinged fluid. Pt ventilating better and responding quicker with "what" and "huh" but not able to follow commands. Maintained ventilation with IVF boluses however lethargy turned back towards obtunded and repeat abg no surprise with her failure to rescue with bipap alone. aware of finding again and plan to intubate. I explained how her bp is stable currently but that my concerns about her now needing invasive ppv may worsening her tamponade and may need emergent pericardialcentesis post intubation. Proceeded to intubation, utilizing just 100mcg fent and pt intubated with 8.0 to 22cm lip. Bp dipped. Placed on vent with poor complaince and needing high airway pressures, causing further narrowing bp, inc HR and further collapse of RV on bedside echo. Set up and performed emergent pericardialcentesis at that time with 500ml bloody fluid extracted with great improvement and echo and bp. ( see separate proceedure notes). again updated. REVIEW OF SYSTEMS: As per HPI. PAST MEDICAL HISTORY: As per HPI. MEDICATIONS: Reviewed. ALLERGIES: Reviewed. SOCIAL HISTORY: Reviewed. FAMILY HISTORY: Noncontributory at present. PHYSICAL EXAM: as per HPI. LABS: Reviewed. IMAGING: Reviewed. MEDICATIONS: Reviewed. ASSESSMENT: 61 F metastatic small cell lung CA Acute hypoxic and hypercarbic resp failure Acute metabolic encephalopathy/CO2 narcosis Tamponade Malignant pleural effusion Hyponatremia Hypokalemia Acute renal failure PLAN: as per HPI. Neurologic: sedation with low dose propofol. Cardiovascular: tamponade now post 500ml drainage. improved dynamics. keep ivf for now. avoid pressors. Respiratory: MV. compliance poor. drained effusions as able, but will re-occur. may tolerate aprv now post pericardial drainage Gastrointestinal: ogt. sup. check amm Renal/Metabolic: f/u fx. check uric acid. f/u lfts Infectious Disease: f/u any cx. no clear infection but given her mutliple ailments and course and risk for sepsis course, will treat empirically with C4 and f/u needs. Hematology: onc f/u. outcome may turn dismal Endocrine: may need steroids. Musculoskeletal: bedrest Psych/Social: d/w throughout. quite guarded and may be unlikely to survive but need to sort out more now post procedures to give her a chance to thrive. He is going home and will be back tomorrow. Supportive and preventative care as ordered. SUP: ppi VTE prophylaxis: may need to change to heparin but currently lovenox Paiz catheter given critical illness, monitoring needs for accurate assessment of FAM and KDIGO criteria for critically ill patients and to avoid potential harms of urinary retention, skin breakdown/ulcers. Disposition: ICU Code Status: Full presently Critical Care Time: 110min, excluding procedures Sean Gomez DO
--- NOTE | 2016-07-07 18:17 | RAD ---
Indication: Post intubation, pericardial centesis, RIGHT fluoroscopy. Rapid atrial fibrillation. History of RIGHT breast cancer with mastectomy. Comparison: [address] of the same date. July 06, 2016 chest radiograph. Technique: Upright AP 1715 hours Report: Endotracheal tube tip is approximate 4 cm above the Khadijah. Nasogastric tube passes to the gastric antrum. RIGHT chest port tip at level of superior vena cava. Cardiomegaly without gross change. Prominent ill-defined central pulmonary vasculature. Moderately large bilateral pleural effusions with associated basilar atelectasis. Pleural fluid tracks into the LEFT major fissure. No pneumothorax visualized. IMPRESSION: Acceptable position of the endotracheal tube. Persistent moderately large pleural effusions. Cardiomegaly with evidence for pulmonary vascular congestion.
[2016-07-07] MEDS: Cefepime(*) 2 GM in NS 0.9% 50 ML* 50 ML IVPB SCH (18:41)
[2016-07-07] MEDS: Chlorhexidine MOUTHWASH 0.12%* 15 ML UDC TOPICAL SCH ×2 (18:42→22:09)
[2016-07-07 18:43] LABS: Venous Bicarbonate HCO3 20.5 mmol/L (24-28)
[2016-07-07 18:56] LABS: Anion Gap 6 mmol/L (2-11); Blood Urea Nitrogen 64 mg/dL (6-24); CO2 Carbon Dioxide 23 mmol/L (22-32); Calcium 7.6 mg/dL (8.6-10.3); Chloride 105 mmol/L (101-111); EGFR African American 68.5 (>60); EGFR Non-African American 53.3 (>60); Glucose 105 mg/dL (70-100); Potassium 4.4 mmol/L (3.5-5.0); Sodium 134 mmol/L (133-145); Uric Acid < 1.5 mg/dL (2.3-6.6)
[2016-07-07] MEDS: Propofol* 100 ML IV SCH (20:02)
[2016-07-07] MEDS: Heparin VIAL(*) 5000 UNITS/ML VIAL (FIVE THOUSAND) SUBCUT SCH (22:09)
[2016-07-08] MEDS ORDERED: NS 0.9% 250 ML* 250 ML IV ONE (02:00)
[2016-07-08] MEDS: Propofol* 100 ML IV SCH ×4 (02:25→22:41)
[2016-07-08] MEDS: Chlorhexidine MOUTHWASH 0.12%* 15 ML UDC TOPICAL SCH ×6 (02:28→21:25)
[2016-07-08 05:40] LABS: Hematocrit 28 % (35-47); Hemoglobin 9.4 g/dl (12.0-16.0); Mean Corpuscular HGB Conc 34 g/dl (31-36); Mean Corpuscular Hemoglobin 30 pg (27-31); Mean Corpuscular Volume 89 fL (80-97); Mean Platelet Volume 8 um3 (7.4-10.4); Red Blood Count 3.18 10^6/ul (4.0-5.4); Red Cell Distribution Width 14 % (10.5-15); White Blood Count 6.1 10^3/ul (3.5-10.8)
[2016-07-08] MEDS: Heparin VIAL(*) 5000 UNITS/ML VIAL (FIVE THOUSAND) SUBCUT SCH ×3 (05:41→21:25)
[2016-07-08] MEDS: Cefepime(*) 2 GM in NS 0.9% 50 ML* 50 ML IVPB SCH ×2 (05:41→18:01)
[2016-07-08 05:50] LABS: Albumin 2.4 g/dL (3.2-5.2); BUN/Creatinine Ratio 63.2 (8-20); Calcium 7.9 mg/dL (8.6-10.3); EGFR African American 85.1 (>60); EGFR Non-African American 66.2 (>60); Globulin 2.4 g/dL (2-4); Magnesium 2.1 mg/dL (1.9-2.7); Phosphorus 3.9 mg/dL (2.5-5.0); Potassium 3.7 mmol/L (3.5-5.0); Total Bilirubin 0.4 mg/dL (0.2-1.0); Total Protein 4.8 g/dL (6.4-8.9)
[2016-07-08] MEDS: Sertraline* 50 MG TAB PO SCH (08:09)
[2016-07-08] MEDS: Enoxaparin(*) 40 MG/0.4 ML SYR SUBCUT SCH (08:16)
[2016-07-08] MEDS: ValACYclovir (*) 1 GM TAB PO SCH (08:18)
--- NOTE | 2016-07-08 09:16 | PN ---
Progress Note - Progress Note SOAP: Subjective: events of yesterday noted. much more alert today and following commands. still quite ventilatory dependant. urine very cloudy. Objective: Vital Signs Temp Pulse Resp BP Pulse Ox 99.3 F 111 14 99/42 99 07/08/16 08:30 07/08/16 08:30 07/08/16 08:30 07/08/16 08:30 07/08/16 08:30 intubated awake, following simple commands after delay perr eomi dec bs throughout left lung field tachy soft no obvious tenderness trace le edema moving all extremities port ecchymotic but clean OG tube black drainage lopez cloudy yellow drainage Laboratory Results - last 24 hr 07/07/16 07/07/16 07/07/16 09:45 09:45 10:20 WBC 15.2 H RBC 3.90 L Hgb 11.3 L Hct 35 MCV 90 MCH 29 MCHC 32 RDW 14 Plt Count 326 MPV 8 Neut % (Auto) 89.5 H Lymph % (Auto) 5.1 L Lagrange % (Auto) 5.3 Eos % (Auto) 0 Baso % (Auto) 0.1 Absolute Neuts (auto) 13.6 H Absolute Lymphs (auto) 0.8 L Absolute Monos (auto) 0.8 Absolute Eos (auto) 0 Absolute Basos (auto) 0 Absolute Nucleated RBC 0.03 Nucleated RBC % 0.2 INR (Anticoag Therapy) Patient Temperature Not Reportable ABG pH 7.14 L* ABG pCO2 73 H* ABG pO2 103 H ABG HCO3 20.5 ABG O2 Saturation 97.8 ABG Base Excess -5.6 L VBG pH VBG pCO2 VBG pO2 VBG HCO3 VBG O2 Saturation VBG Base Excess Respiration Rate Not Reportable O2 Delivery Device 2 lnc Ventilator Type Not Reportable Vent Mode Not Reportable FiO2 Not Reportable Inspiratory Time Not Reportable PEEP Not Reportable Pressure Support Not Reportable Pressure Control Not Reportable EPAP Not Reportable IPAP Not Reportable BiPAP Not Reportable Sodium 131 L Potassium 5.2 H Chloride 96 L Carbon Dioxide 27 Anion Gap 8 BUN 72 H Creatinine 1.37 H Est GFR ( Amer) 50.4 Est GFR (Non-Af Amer) 39.2 BUN/Creatinine Ratio 52.6 H Glucose 134 H Lactic Acid Uric Acid Calcium 9.2 Ionized Calcium Phosphorus 8.3 H Magnesium 2.4 Total Bilirubin 0.40 AST 51 H ALT 62 H Alkaline Phosphatase 256 H Ammonia Total Protein 6.5 Albumin 3.2 Globulin 3.3 Albumin/Globulin Ratio 1.0 07/07/16 07/07/16 07/07/16 13:50 18:33 18:33 WBC RBC Hgb Hct MCV MCH MCHC RDW Plt Count MPV Neut % (Auto) Lymph % (Auto) Lagrange % (Auto) Eos % (Auto) Baso % (Auto) Absolute Neuts (auto) Absolute Lymphs (auto) Absolute Monos (auto) Absolute Eos (auto) Absolute Basos (auto) Absolute Nucleated RBC Nucleated RBC % INR (Anticoag Therapy) 1.20 H Patient Temperature Not Reportable ABG pH 7.16 L* ABG pCO2 66 H ABG pO2 245 H ABG HCO3 20.4 ABG O2 Saturation 100.3 H ABG Base Excess -5.8 L VBG pH VBG pCO2 VBG pO2 VBG HCO3 VBG O2 Saturation VBG Base Excess Respiration Rate 14 O2 Delivery Device Bipap Ventilator Type Not Reportable Vent Mode Not Reportable FiO2 100 Inspiratory Time Not Reportable PEEP Not Reportable Pressure Support Not Reportable Pressure Control Not Reportable EPAP 7 IPAP 14 BiPAP Not Reportable Sodium Potassium Chloride Carbon Dioxide Anion Gap BUN Creatinine Est GFR ( Amer) Est GFR (Non-Af Amer) BUN/Creatinine Ratio Glucose Lactic Acid Uric Acid Calcium Ionized Calcium Phosphorus Magnesium Total Bilirubin AST ALT Alkaline Phosphatase Ammonia 65 H Total Protein Albumin Globulin Albumin/Globulin Ratio 07/07/16 07/07/16 07/07/16 18:33 18:33 18:33 WBC RBC Hgb Hct MCV MCH MCHC RDW Plt Count MPV Neut % (Auto) Lymph % (Auto) Lagrange % (Auto) Eos % (Auto) Baso % (Auto) Absolute Neuts (auto) Absolute Lymphs (auto) Absolute Monos (auto) Absolute Eos (auto) Absolute Basos (auto) Absolute Nucleated RBC Nucleated RBC % INR (Anticoag Therapy) Patient Temperature ABG pH ABG pCO2 ABG pO2 ABG HCO3 ABG O2 Saturation ABG Base Excess VBG pH 7.25 L VBG pCO2 50 VBG pO2 40 VBG HCO3 20.5 L VBG O2 Saturation 75.4 VBG Base Excess -5.2 L Respiration Rate O2 Delivery Device Ventilator Type Vent Mode FiO2 Inspiratory Time PEEP Pressure Support Pressure Control EPAP IPAP BiPAP Sodium 134 Potassium 4.4 Chloride 105 Carbon Dioxide 23 Anion Gap 6 BUN 64 H Creatinine 1.05 H Est GFR ( Amer) 68.5 Est GFR (Non-Af Amer) 53.3 BUN/Creatinine Ratio 61.0 H Glucose 105 H Lactic Acid 0.7 Uric Acid < 1.5 L Calcium 7.6 L Ionized Calcium Phosphorus Magnesium Total Bilirubin AST ALT Alkaline Phosphatase Ammonia Total Protein Albumin Globulin Albumin/Globulin Ratio 07/08/16 07/08/16 07/08/16 05:15 05:15 05:15 WBC 6.1 RBC 3.18 L Hgb 9.4 L Hct 28 L MCV 89 MCH 30 MCHC 34 RDW 14 Plt Count 137 L MPV 8 Neut % (Auto) 91.2 H Lymph % (Auto) 6.2 L [place] % (Auto) 2.5 Eos % (Auto) 0 Baso % (Auto) 0.1 Absolute Neuts (auto) 5.5 Absolute Lymphs (auto) 0.4 L Absolute Monos (auto) 0.2 Absolute Eos (auto) 0 Absolute Basos (auto) 0 Absolute Nucleated RBC 0 Nucleated RBC % 0.1 INR (Anticoag Therapy) Patient Temperature ABG pH ABG pCO2 ABG pO2 ABG HCO3 ABG O2 Saturation ABG Base Excess VBG pH VBG pCO2 VBG pO2 VBG HCO3 VBG O2 Saturation VBG Base Excess Respiration Rate O2 Delivery Device Ventilator Type Vent Mode FiO2 Inspiratory Time PEEP Pressure Support Pressure Control EPAP IPAP BiPAP Sodium 136 Potassium 3.7 Chloride 105 Carbon Dioxide 23 Anion Gap 8 BUN 55 H Creatinine 0.87 Est GFR ( Amer) 85.1 Est GFR (Non-Af Amer) 66.2 BUN/Creatinine Ratio 63.2 H Glucose 78 Lactic Acid Uric Acid Calcium 7.9 L Ionized Calcium 4.41 L Phosphorus 3.9 Magnesium 2.1 Total Bilirubin 0.40 AST 44 H ALT 36 Alkaline Phosphatase 165 H Ammonia Total Protein 4.8 L Albumin 2.4 L Globulin 2.4 Albumin/Globulin Ratio 1.0 Acetaminophen (Tylenol Tab*) 325 mg PO Q4H PRN PRN Reason: PAIN Allopurinol (Zyloprim Tab*) 300 mg PO DAILY CHRISTY Last Admin: 07/07/16 08:19 Dose: 300 mg Chlorhexidine Gluconate (Peridex Mouth Wash 0.12%*) 15 ml TOPICAL Q4HR CHRISTY Last Admin: 07/08/16 08:18 Dose: 15 ml Docusate Sodium (Colace Cap*) 100 mg PO BID PRN PRN Reason: CONSTIPATION Last Admin: 07/06/16 18:30 Dose: 100 mg Heparin Sodium (Porcine) (Heparin Vial(*)) 5,000 units SUBCUT Q8HR CHRISTY Last Admin: 07/08/16 05:41 Dose: 5,000 units Propofol (Diprivan*) 100 mls @ 2.531 mls/hr IV .(Initial Rate) CHRISTY; 5 MCG/KG/ MIN PRN Reason: Protocol Last Admin: 07/08/16 08:09 Dose: 16.4 mls/hr Cefepime HCl 2 gm/ Sodium (Chloride) 50 mls @ 100 mls/hr IVPB Q12H CHRISTY Last Admin: 07/08/16 05:41 Dose: 100 mls/hr Sodium Chloride (Ns 0.9% 1000 Ml*) 1,000 mls @ 100 mls/hr IV PER RATE CHRISTY Last Admin: 07/08/16 03:14 Dose: 100 mls/hr Pantoprazole Sodium (Protonix Iv*) 40 mg IV Q24H CHRISTY Sertraline HCl (Zoloft*) 50 mg PO DAILY CHRISTY Last Admin: 07/08/16 08:09 Dose: 50 mg Valacyclovir HCl (Valtrex 1 Gm(*)) 1 gm PO DAILY CHRISTY PRN Reason: Protocol Last Admin: 07/08/16 08:18 Dose: 1 gm Assessment: 61 yo F w COPD and extensive stage small cell lung cancer sp carbo/etoposide days 1 only admitted in afib w RVR found at time of port placement. I suspect that her afib was related to her deteriorating pulmonary status from her cancer and effusions as well as her malignant pericardial effusion and not from her port placement. Her hypercarbic respiratory failure is a little more confusing. It may have all been from her effusions, though she did not improve on BIPAP as one would have anticipated. Plan: -appreciate ICU level care -critical care management per Dr. Gomez -added PPI for gastric protection -cont cefepime -check UA -cont valtrex for shingles full code
[2016-07-08 09:33] LABS: Urine Bacteria Absent (Absent); Urine Bilirubin Negative (Negative); Urine Glucose Negative (Negative); Urine Nitrite Negative (Negative)
[2016-07-08] MEDS ORDERED: Calcium Gluconate INJ* 1 GM in NS 0.9% 50 ML* 50 ML IVPB ONE (10:00)
--- NOTE | 2016-07-08 10:13 | RAD ---
INDICATION: Hypoxia. COMPARISON: Comparison is made with a prior chest x-ray study from July 07, 2016. TECHNIQUE: A portable view of the chest was obtained. FINDINGS: There is a power port central venous catheter present on the right side. The catheter tip projects over the right atrium. There is a nasogastric tube which demonstrates normal course. The catheter tip projects in the left upper quadrant. There is an endotracheal tube present which projects over the midline. There is also a left chest tube present. The cardiac borders are not well-defined on this study and this is unchanged from the prior exam. There is increased density present throughout the left hemithorax. There is an infiltrate present in the right mid and lower lung field and a small to moderate size right pleural effusion present. IMPRESSION: 1. BILATERAL INFILTRATES, UNCHANGED. 2. SMALL TO MODERATE SIZE RIGHT PLEURAL EFFUSION INCREASED IN SIZE.
[2016-07-08] MEDS: Potassium Chloride LIQUID* 20 MEQ PACKET G TUBE SCH ×3 (11:36→21:25)
[2016-07-08] MEDS: Pantoprazole IV* 40 MG IV SCH (11:37)
[2016-07-08] MEDS: Allopurinol TAB* 300 MG PO SCH (11:40)
--- NOTE | 2016-07-08 11:44 | PN ---
Progress Note - Progress Note Note: CRITICAL CARE MEDICINE PROCEDURE NOTE (LATE NOTE ENTRY FROM 07/07/16 1200) DATE OF PROCEDURE: SERVICE: Critical Care Medicine LOCATION OF PROCEDURE: ICU PROCEDURE: LEFT Thoracentesis PROCEDURALIST: Dr. Gomez Consent obtain: Yes, verbal consent from pts , procedure performed emergently Time out held: Yes INDICATION: Pleural effusion PROCEDURE: Oxygenation maintained and vitals monitored. Patient in supine position on bipap. Site and side marked with initials and date. Chlorhexidine prep x 2 at site and full sterile drape, gown, and gloves utilized. Total 5ml 1% lidocaine utilized locally. Standard sterile technique utilized via ultrasound guidance. Needle retracted when fluid aspirated via advanced negative pressure technique. Catheter was inserted to 15cm and 300ml aspirated to gravity negative pressure bag. Consistency was serous. Fluid color blood tinged Minimal to Nil blood loss. Site covered with band aid. Portable chest x-ray post without ptx Patient otherwise tolerated well. present throughout the procedure. Sean Gomez, DO
--- NOTE | 2016-07-08 11:50 | PN ---
Progress Note - Progress Note Note: CRITICAL CARE MEDICINE PROCEDURE NOTE (LATE NOTE FROM 07/07/16 at 1330) DATE: 07/07/16 TIME: 1329 SERVICE: Critical Care Medicine LOCATION OF PROCEDURE: ICU PROCEDURE: Endotracheal intubation PROCEDURALIST: Dr. Gomez Consent obtain: Yes, verbal from , procedure performed emergently Time out held: Not indicated INDICATION: Acute respiratory failure, failing bipap. PROCEDURE: Oxygenation maintained and vitals monitored. Patient in supine position. Pre-medication with fentanyl 100mcg. Glidescope #3 inserted with Grade 1 view obtained. 8.0 endotracheal tube inserted to 24cm lip. Good chest rise with breath sounds appreciated in bilaterally lung ayala. EtCO2 + color change. Portable chest x-ray with ett in place. Patient otherwise tolerated well. Sean Gomez, DO
--- NOTE | 2016-07-08 11:55 | PN ---
Progress Note - Progress Note Note: CRITICAL CARE MEDICINE PROCEDURE NOTE (LATE NOTE ENTRY FROM 07/07/16 1400) DATE OF PROCEDURE: 07/07/161399 SERVICE: Critical Care Medicine LOCATION OF PROCEDURE: ICU PROCEDURE: Emergent Pericardialcentesis PROCEDURALIST: Dr. Gomez Consent obtain: Yes, verbally from patients at bedside, but procedure performed emergently Time out held: Yes INDICATION: Malignant pericardial effusion with tamponade ensuing post intubation PROCEDURE: Oxygenation maintained and vitals monitored. Patient in supine position Site marked and utilized ultrasound throughout procedure. Chlorhexidine prep x 3 at site and full sterile drape, gown, and gloves utilized. Total 5ml 2% lidocaine utilized locally. Standard sterile technique utilized via ultrasound guidance. Needle retracted when fluid aspirated after penetration of pericardium via advanced negative pressure technique. Wire passed. Visualized on us. Dilater utilized and catheter advanced to about 15cm. Grvity drainage of about 500ml blood tinged serous fluid. Ultrasound throughout showed diminshing pericardial effusion but drainage slowed with still smaller residual effusion but much better hemodynamics and RV size. Minimal to Nil blood loss. Site covered with tegaderm. Patient otherwise tolerated well. updated. Sean Gomez DO
[2016-07-08] MEDS ORDERED: ALTEPLASE SCH (12:00)
[2016-07-08] MEDS ORDERED: NS 0.9% SCH (12:00)
--- NOTE | 2016-07-08 12:05 | PN ---
Progress Note - Progress Note Note: CRITICAL CARE MEDICINE DATE: 07/08/16 TIME: 935 SUBJECTIVE: Patient seen and examined. D/w pts and Dr. Frost. PHYSICAL EXAM: Vital Signs: Reviewed. Neurologic: awakens off propofol; communicating. denies pain. HEENT: pupils equal. Sclera anicteric. Trachea midline. Cardiovascular: S1 S2, much crisper tones Respiratory: dec bs bl with small volumes. 40% Abdomen: Soft, obese, maybe a touch distended. No r/g/r. Extremities: Warm. Dep edema Access: port intact LABS: Reviewed. IMAGING: Reviewed. MEDICATIONS: Reviewed. ASSESSMENT: 61 F metastatic small cell lung CA Acute hypoxic and hypercarbic resp failure Acute metabolic encephalopathy/CO2 narcosis Malignant pericardial effusion and tamponade Malignant pleural effusions Hyponatremia Hypokalemia Acute renal failure PLAN: Neurologic: sedation with low dose propofol but doing well. Cardiovascular: Hemodynamics maintaining but bp on soft end not surprising. not narrow. screening bedside echo with good chamber size and mod effusion still. can dc ivf. consider steroids but not needing vasopressor either. Respiratory: mod L>R effusion on bedside us. left catheter not draining. will instill 2mg tpa and see if we can improve flow. Adjusted to aprv to see if we can improve compliance with her degree of atectasis and fluid ensuing. would like her to mobilize fluid but need better dynamics first. As d/w . May need additional R thora if not improving enough or even pleurax cath there too. See hhow she does first. Gastrointestinal: ogt. start tf today. sup. mild amm. Renal/Metabolic: better. uric acid ok. Lasix trial later today Infectious Disease: again no clear infection and wbc down and see where marrow ailments go; keep C4 for now. Hematology: onc f/u. again, whether we need to stay ultra agressive and delivery further chemo is still an option. However, at this time would rather see if she can support structural balance and liberate from vent prior to re- initiation. time. hsq Endocrine: steroids for support. Musculoskeletal: deconditioined. Psych/Social: updated Supportive and preventative care as ordered. SUP: ppi VTE prophylaxis: heparin Paiz catheter given critical illness, monitoring needs for accurate assessment of FAM and KDIGO criteria for critically ill patients and to avoid potential harms of urinary retention, skin breakdown/ulcers. Disposition: ICU Code Status: Full presently Critical Care Time: 45min FMary Beth Gomez DO
[2016-07-08] MEDS ORDERED: Digoxin IV* 0.5 MG/2 ML AMP (0.25 MG/ML) ONE (12:20)
[2016-07-08] MEDS ORDERED: Digoxin IV* 0.5 MG/2 ML AMP (0.25 MG/ML) IV SLOW PU ONE ×2 (12:21→18:00)
[2016-07-08] MEDS: Hydrocortisone INJ* 100 MG VIAL IV SCH ×2 (12:31→18:01)
[2016-07-08] MEDS ORDERED: ALTEPLASE ONE (13:00)
[2016-07-08] MEDS ORDERED: NS 0.9% ONE (13:00)
--- NOTE | 2016-07-08 13:19 | PN ---
Progress Note - Progress Note Note: CRITICAL CARE MEDICINE DATE: 07/08/16 TIME: 1300 Follow up as pts pleurax catheter not draining. Pt with afib rvr. CHnaged on aprv and to high level cpap with good volume and comfortable. Hr slightly better. Given 500mcg dig. 2mg tpa in 40ml ns instilled through pleurex catheter with good flow in. Clamped for 30min and then can resume suction bottle need for hopeful better fluid removal. Sister at bedside, with pts , updated. Critical Care Time: 15min Sean Gomez DO
--- NOTE | 2016-07-08 14:57 | PN ---
Progress Note - Progress Note Note: CRITICAL CARE MEDICINE PROCEDURE NOTE DATE OF PROCEDURE: 07/08/16 SERVICE: Critical Care Medicine LOCATION OF PROCEDURE: ICU PROCEDURE: RIGHT Thoracentesis PROCEDURALIST: Dr. Gomez Consent obtain: Yes Time out held: Yes INDICATION: Pleural effusion / respiratory failure PROCEDURE: Oxygenation maintained and vitals monitored. Patient in supine position Site and side marked. Chlorhexidine prep x 2 at site and full sterile drape, gown, and gloves utilized. Total 10ml 1% lidocaine utilized locally. Very small incision via scalpel at skin. Standard sterile technique utilized via ultrasound guidance. Needle retracted when fluid aspirated via advanced negative pressure technique. Catheter was inserted to 12cm and aliquots of 50ml aspirated, to a total of 800ml. Already on aprv and watch for and not large burden macroatelectasis so burden for re-expansion pulm edema less. Consistency was serous. Fluid color blood tinged. Minimal to Nil blood loss. Site covered with band aid. Portable chest x-ray pending. Patient otherwise tolerated well. Pts and sister present throughout the procedure. Sean Gomez, DO
[2016-07-08] MEDS ORDERED: Albumin Human 25%* 100 ML in PREMIX* 0 ML IV ONE (15:00)
[2016-07-08] MEDS: Phenylephrine INJ* 50 MG in NS 0.9% 250 ML* 245 ML IV SCH (15:28)
--- NOTE | 2016-07-08 15:30 | RAD ---
Indication: Respiratory failure. Post effusion drainage. Atrial fibrillation. History of breast cancer. Comparison: July 08, 2016 chest radiograph. Technique: Upright AP 1507 hours Report: Resolution of previous RIGHT pleural effusion and associated compressive atelectasis. Persistent moderately large LEFT pleural effusion which tracks into the major fissure. Associated atelectasis and potential inflammatory consolidation at the LEFT mid to lower lung zone with mild improvement over the prior exam. LEFT chest tube approximating the mediastinum is unchanged. Suggestion of a potential small LEFT apical pneumothorax new compared with the prior exam. Negative for mediastinal shift. Endotracheal tube tip 4.5 cm above the Khadijah. Nasogastric tube no longer visualized. Cardiomegaly. Unremarkable nonobscured central pulmonary vasculature. IMPRESSION: 1. Resolution of previous RIGHT pleural effusion. 2. Mild improvement in LEFT pleural effusion and decreased LEFT lung atelectasis/consolidation. 3. Suggestion of a small LEFT apical pneumothorax new compared with the prior exam however this is not definitive. Negative for associated mediastinal shift. 4. Resolution of previous pulmonary vascular congestion based on assessment of the nonobscured RIGHT lung and hilum..
[2016-07-08] MEDS: fentaNYL* 50 MCG/ML 2 ML VIAL (100 MCG VIAL) IV SLOW PU PRN ×2 (16:31→21:49)
[2016-07-08] MEDS ORDERED: Furosemide IV* 10 MG/ML VIAL (40 MG) IV SLOW PU ONE (17:00)
--- NOTE | 2016-07-08 17:09 | RAD ---
Indication: Verify orogastric tube placement. Comparison: 1514 hours exam of the same date. Technique: Upright AP chest and upper abdomen 1650 hours Report: The orogastric tube passes to the stomach is visualized as far distal as the gastric body. The tube may extend further however it is not conspicuous with obesity limiting assessment. The exam is otherwise stable compared with the earlier exam of the same date. Potential small LEFT apical pneumothorax appears unchanged. LEFT chest tube is unchanged in position. IMPRESSION: The orogastric tube passes to the stomach is visualized as far distal as the gastric body. The tube may extend further however it is not conspicuous with obesity limiting assessment.
[2016-07-08] MEDS ORDERED: NS 0.9% 50 ML* 50 ML ONE (17:54)
[2016-07-09] MEDS: Hydrocortisone INJ* 100 MG VIAL IV SCH ×3 (00:34→13:32)
[2016-07-09] MEDS: Propofol* 100 ML IV SCH ×2 (01:19→05:43)
[2016-07-09] MEDS: Chlorhexidine MOUTHWASH 0.12%* 15 ML UDC TOPICAL SCH ×3 (01:20→09:41)
[2016-07-09 05:54] LABS: Hematocrit 32 % (35-47); Hemoglobin 10.8 g/dl (12.0-16.0); Mean Corpuscular HGB Conc 34 g/dl (31-36); Mean Corpuscular Hemoglobin 30 pg (27-31); Mean Corpuscular Volume 88 fL (80-97); Mean Platelet Volume 8 um3 (7.4-10.4); Red Blood Count 3.67 10^6/ul (4.0-5.4); Red Cell Distribution Width 14 % (10.5-15)
[2016-07-09] MEDS: Cefepime(*) 2 GM in NS 0.9% 50 ML* 50 ML IVPB SCH ×2 (05:57→18:17)
[2016-07-09] MEDS: Heparin VIAL(*) 5000 UNITS/ML VIAL (FIVE THOUSAND) SUBCUT SCH ×3 (05:58→21:49)
[2016-07-09] MEDS: Phenylephrine INJ* 50 MG in NS 0.9% 250 ML* 245 ML IV SCH ×2 (05:59→08:53)
[2016-07-09 06:06] LABS: BUN/Creatinine Ratio 52.4 (8-20); Calcium 8.9 mg/dL (8.6-10.3); EGFR African American 68.5 (>60); EGFR Non-African American 53.3 (>60); Magnesium 2.3 mg/dL (1.9-2.7); Phosphorus 4.6 mg/dL (2.5-5.0)
[2016-07-09 06:12] LABS: Potassium 4.5 mmol/L (3.5-5.0)
[2016-07-09] MEDS ORDERED: Scopolamine 1.5 mg* PATCH TRANSDERM SCH (09:00)
[2016-07-09] MEDS ORDERED: Scopolamine PATCH Remove* 1 NOTE MISC PATCH OFF SCH (09:00)
[2016-07-09] MEDS ORDERED: Furosemide IV* 10 MG/ML VIAL (40 MG) IV SLOW PU ONE (09:37)
[2016-07-09] MEDS: ValACYclovir (*) 1 GM TAB PO SCH (09:39)
[2016-07-09] MEDS: Pantoprazole IV* 40 MG IV SCH (09:39)
[2016-07-09] MEDS: Sertraline* 50 MG TAB PO SCH (09:39)
[2016-07-09] MEDS: Potassium Chloride LIQUID* 20 MEQ PACKET G TUBE SCH (09:40)
[2016-07-09] MEDS: Allopurinol TAB* 300 MG PO SCH (09:41)
--- NOTE | 2016-07-09 10:16 | PN ---
Progress Note - Progress Note Note: CRITICAL CARE MEDICINE DATE: 07/09/16 TIME: 935 SUBJECTIVE: Patient seen and examined. D/w Dr. Lopez PHYSICAL EXAM: Vital Signs: Reviewed. Neurologic: awakens well off propofol; communicating. denies pain. HEENT: pupils equal. Sclera anicteric. Trachea midline. Cardiovascular: S1 S2, little dull Respiratory: much better volume and air in right lung and dec in left Abdomen: Soft, obese. No r/g/r. Extremities: Warm. Dep edema Access: port intact LABS: Reviewed. IMAGING: Reviewed. MEDICATIONS: Reviewed. ASSESSMENT: 61 F metastatic small cell lung CA Acute hypoxic and hypercarbic resp failure Acute metabolic encephalopathy/CO2 narcosis Malignant pericardial effusion and tamponade Malignant pleural effusions Hyponatremia Hypokalemia Acute renal failure PLAN: Neurologic: hold propofol. Cardiovascular: Low dose mariela overnight and dynamics maintained. Intravasc vol ok but not overlaoded. Does of course have interstial vol. Trial one further lasix dose and then hold. Post liberation can likely come off mariela. Respiratory: changed to cpap and tolerating. R effusion drained well. Left stil present and pleurex catheter high in thorax. can retract some and attempt drainage again as needed. liberate from vent today. Gastrointestinal: tf held. Renal/Metabolic: stable. Infectious Disease: C4 perhpas for a short 5-7 day course. wbc stabilized. Hematology: onc f/u. tx to follow. Endocrine: steroid for a pulse. Musculoskeletal: deconditioined. needs pt Psych/Social: updated Supportive and preventative care as ordered. SUP: ppi VTE prophylaxis: heparin Paiz catheter given critical illness, monitoring needs for accurate assessment of FAM and KDIGO criteria for critically ill patients and to avoid potential harms of urinary retention, skin breakdown/ulcers. Disposition: ICU Code Status: Full Critical Care Time: 40min FMary Beth Gomez DO
[2016-07-09] MEDS ORDERED: Albuterol/Ipratropium NEB.SOL* Albuterol 2.5 MG/Ipratropium 0.5 MG 3 ML INH PRN (14:56)
[2016-07-09] MEDS: predniSONE TAB* 20 MG PO SCH (18:18)
[2016-07-09] MEDS: Diltiazem TAB* 30 MG PO SCH (18:18)
[2016-07-10] MEDS: Diltiazem TAB* 30 MG PO SCH ×4 (00:30→17:29)
[2016-07-10 06:11] LABS: Hematocrit 27 % (35-47); Red Blood Count 3.12 10^6/ul (4.0-5.4)
[2016-07-10] MEDS: Heparin VIAL(*) 5000 UNITS/ML VIAL (FIVE THOUSAND) SUBCUT SCH ×3 (06:25→22:37)
[2016-07-10] MEDS: Cefepime(*) 2 GM in NS 0.9% 50 ML* 50 ML IVPB SCH ×2 (06:25→17:29)
[2016-07-10 06:30] LABS: BUN/Creatinine Ratio 66.7 (8-20); Calcium 8.2 mg/dL (8.6-10.3); EGFR African American 123.6 (>60); EGFR Non-African American 96.1 (>60); Phosphorus 2.9 mg/dL (2.5-5.0)
[2016-07-10 06:59] LABS: Hemoglobin 9.2 g/dl (12.0-16.0); Mean Corpuscular HGB Conc 34 g/dl (31-36); Mean Corpuscular Hemoglobin 30 pg (27-31); Mean Corpuscular Volume 88 fL (80-97); Mean Platelet Volume 9 um3 (7.4-10.4); Red Cell Distribution Width 14 % (10.5-15); White Blood Count 5.8 10^3/ul (3.5-10.8)
[2016-07-10 07:21] LABS: Comments Flag Yes
[2016-07-10] MEDS: Sertraline* 50 MG TAB PO SCH (08:30)
[2016-07-10] MEDS: Allopurinol TAB* 300 MG PO SCH (08:30)
[2016-07-10] MEDS: predniSONE TAB* 20 MG PO SCH (08:30)
[2016-07-10] MEDS: ValACYclovir (*) 1 GM TAB PO SCH (08:30)
[2016-07-10] MEDS: oxyCODONE TAB* 5 MG TAB PO PRN (08:30)
--- NOTE | 2016-07-10 09:49 | PN ---
Progress Note - Progress Note SOAP: Subjective: []Extubated. Still not feeling well but not SOB in bed. Feels weak, not eating because has not had food. No fevers. Pain controlled. Acetaminophen (Tylenol Tab*) 325 mg PO Q4H PRN PRN Reason: PAIN Albuterol/Ipratropium (Duoneb Neb.Daphne*) 1 neb INH Q4H PRN PRN Reason: SOB/WHEEZING Allopurinol (Zyloprim Tab*) 300 mg PO DAILY [facility] Last Admin: 07/10/16 08:30 Dose: 300 mg Diltiazem HCl (Cardizem Tab*) 30 mg PO Q6HR [facility] Last Admin: 07/10/16 06:25 Dose: 30 mg Docusate Sodium (Colace Cap*) 100 mg PO BID PRN PRN Reason: CONSTIPATION Last Admin: 07/06/16 18:30 Dose: 100 mg Heparin Sodium (Porcine) (Heparin Vial(*)) 5,000 units SUBCUT Q8HR [facility] Last Admin: 07/10/16 06:25 Dose: 5,000 units Cefepime HCl 2 gm/ Sodium (Chloride) 50 mls @ 100 mls/hr IVPB Q12H [facility] Last Admin: 07/10/16 06:25 Dose: 100 mls/hr Sodium Chloride (Ns 0.9% 1000 Ml*) 1,000 mls @ 0 mls/hr IV PER RATE [facility] PRN Reason: KVO Oxycodone HCl (Roxycodone Tab*) 5 mg PO Q6H PRN PRN Reason: PAIN Last Admin: 07/10/16 08:30 Dose: 5 mg Pantoprazole Sodium (Protonix Iv*) 40 mg IV Q24H [facility] Last Admin: 07/09/16 09:39 Dose: 40 mg Sertraline HCl (Zoloft*) 50 mg PO DAILY [facility] Last Admin: 07/10/16 08:30 Dose: 50 mg Valacyclovir HCl (Valtrex 1 Gm(*)) 1 gm PO DAILY [facility] PRN Reason: Protocol Last Admin: 07/10/16 08:30 Dose: 1 gm Objective: [] Vital Signs Temp Pulse Resp BP Pulse Ox 98.2 F 91 21 117/57 96 07/10/16 09:00 07/10/16 09:00 07/10/16 09:00 07/10/16 09:00 07/10/16 09:00 HEENT - Pale, no through, no JVD. Resp - mild distress at rest, decreased BS both bases, no wheezes. RRR S1S2 +BS but decreased, NT Yellow urine in lopez Ext warm, no edema Assessment: []61 year old with SSLC, status post one day of chemotherapy and respiratory decompensation, found to have pericardial effusion, likely malignant. Drainage of effusion and pleural effusion. Stable for the moment. Plan: [] 1. Off ventilator and stable. Will continue to follow. Discussed with if she would want to go back on vent, knowing would then be difficulty to come back off machines and he is not sure. Plan familly meeting, maybe later today. He cannot come in now because of the snow. She is full code at this time. 2. SSLC. Unclear if will be able to have additional therapy. If she recovers from this and disease responds to what he has received, maybe. Response and improvement can be dramatic in SSLC. If she plateaus or deteriorates, hospice. 3. PT working with her today 4. Encouraged po intake 5. Continued ICU support.
--- NOTE | 2016-07-10 11:13 | PN ---
Progress Note - Progress Note Note: CRITICAL CARE MEDICINE DATE: 07/10/16 TIME: 1000 SUBJECTIVE: Patient seen and examined. PHYSICAL EXAM: Vital Signs: Reviewed. Hr~100 Neurologic:stable. communicating well. HEENT: pupils equal. Sclera anicteric. Trachea midline. Cardiovascular: S1 S2, not crisp Respiratory: has short fast inhalation and less excursion on left; dull. And mild prolonged exhalation with forced wheeze. Abdomen: Soft, obese. No r/g/r. Extremities: Warm. Dep edema Access: port intact LABS: Reviewed. IMAGING: Reviewed. MEDICATIONS: Reviewed. ASSESSMENT: 61 F metastatic small cell lung CA Acute hypoxic and hypercarbic resp failure Acute metabolic encephalopathy/CO2 narcosis Malignant pericardial effusion and tamponade Malignant bl pleural effusions Hyponatremia Hypokalemia Acute renal failure PLAN: Neurologic: stable. pain meds as needed. Cardiovascular: Hr still a touch high, level not surprising, but don't want to overblock either. utilizing cardizem. Respiratory: Russel O2 wean but has her work to do. Drain with pleurx today as able. IS. OOB. nebs prn Gastrointestinal: po diet. encourage. Renal/Metabolic: stable dynamics. devi lopez. Infectious Disease: C4 for a short 5-7 day course. Hematology: onc f/u. Plt down dramatically - ?lab error. Clinically ok. f/u. Endocrine: steroid pulse complete. Musculoskeletal: deconditioined. needs pt Psych/Social: updated by onc Supportive and preventative care as ordered. SUP: ppi VTE prophylaxis: heparin Disposition: ICU today but about ready for floor Code Status: Full Critical Care Time: 30min Sean Gomez DO
[2016-07-10] MEDS: Omeprazole CAP* 20 MG PO SCH (11:45)
[2016-07-11] MEDS: Diltiazem TAB* 30 MG PO SCH ×5 (00:24→23:32)
[2016-07-11] MEDS: NS 0.9% 1000 ML* 1,000 ML IV SCH (00:44)
[2016-07-11] MEDS: Cefepime(*) 2 GM in NS 0.9% 50 ML* 50 ML IVPB SCH ×2 (05:17→17:44)
[2016-07-11] MEDS: Omeprazole CAP* 20 MG PO SCH (05:21)
[2016-07-11 05:22] LABS: Hematocrit 28 % (35-47); Hemoglobin 9.3 g/dl (12.0-16.0); Mean Corpuscular HGB Conc 33 g/dl (31-36); Mean Corpuscular Hemoglobin 29 pg (27-31); Mean Corpuscular Volume 88 fL (80-97); Mean Platelet Volume 8 um3 (7.4-10.4); Red Blood Count 3.17 10^6/ul (4.0-5.4); Red Cell Distribution Width 14 % (10.5-15); White Blood Count 7.4 10^3/ul (3.5-10.8)
[2016-07-11 05:24] LABS: Comments Flag Yes
[2016-07-11] MEDS: Heparin VIAL(*) 5000 UNITS/ML VIAL (FIVE THOUSAND) SUBCUT SCH (05:24)
[2016-07-11 05:33] LABS: BUN/Creatinine Ratio 69.6 (8-20); Calcium 8.5 mg/dL (8.6-10.3); EGFR African American 177.6 (>60); EGFR Non-African American 138.1 (>60); Phosphorus 2.3 mg/dL (2.5-5.0); Potassium 3.9 mmol/L (3.5-5.0)
[2016-07-11] MEDS: Pantoprazole IV* 40 MG IV SCH (09:44)
[2016-07-11] MEDS: Allopurinol TAB* 300 MG PO SCH (09:53)
[2016-07-11] MEDS: Sertraline* 50 MG TAB PO SCH (09:53)
[2016-07-11] MEDS: ValACYclovir (*) 1 GM TAB PO SCH (09:53)
--- NOTE | 2016-07-11 12:30 | PN ---
Subjective Date of Service: 07/11/16 Interval History: Pt feels well. Transferred out of ICU last night. Back to home 02 at 2 L Objective Active Medications: Acetaminophen (Tylenol Tab*) 325 mg PO Q4H PRN PRN Reason: PAIN Albuterol/Ipratropium (Duoneb Neb.Daphne*) 1 neb INH Q4H PRN PRN Reason: SOB/WHEEZING Allopurinol (Zyloprim Tab*) 300 mg PO DAILY [facility] Last Admin: 07/11/16 09:53 Dose: 300 mg Diltiazem HCl (Cardizem Tab*) 30 mg PO Q6HR [facility] Last Admin: 07/11/16 12:21 Dose: 30 mg Docusate Sodium (Colace Cap*) 100 mg PO BID PRN PRN Reason: CONSTIPATION Last Admin: 07/06/16 18:30 Dose: 100 mg Cefepime HCl 2 gm/ Sodium (Chloride) 50 mls @ 100 mls/hr IVPB Q12H [facility] Last Admin: 07/11/16 05:17 Dose: 100 mls/hr Sodium Chloride (Ns 0.9% 1000 Ml*) 1,000 mls @ 0 mls/hr IV PER RATE [facility] PRN Reason: KVO Last Admin: 07/11/16 00:44 Dose: 20 mls/hr Omeprazole (Prilosec Cap*) 20 mg PO DAILY@0600 [facility] Last Admin: 07/11/16 05:21 Dose: 20 mg Oxycodone HCl (Roxycodone Tab*) 5 mg PO Q6H PRN PRN Reason: PAIN Last Admin: 07/10/16 08:30 Dose: 5 mg Sertraline HCl (Zoloft*) 50 mg PO DAILY [facility] Last Admin: 07/11/16 09:53 Dose: 50 mg Valacyclovir HCl (Valtrex 1 Gm(*)) 1 gm PO DAILY [facility] PRN Reason: Protocol Last Admin: 07/11/16 09:53 Dose: 1 gm Vital Signs 07/10/16 07/10/16 07/10/16 13:00 14:00 15:00 Temperature Pulse Rate 101 90 95 Respiratory 20 14 14 Rate Blood Pressure 109/53 106/63 119/47 (mmHg) O2 Sat by Pulse 95 95 97 Oximetry 07/10/16 07/10/16 07/10/16 16:00 17:00 18:00 Temperature Pulse Rate 98 97 99 Respiratory 13 20 20 Rate Blood Pressure 122/55 117/60 103/49 (mmHg) O2 Sat by Pulse 96 96 96 Oximetry 07/10/16 07/10/16 07/10/16 19:00 19:35 20:00 Temperature 98.3 F Pulse Rate 97 93 Respiratory 15 16 Rate Blood Pressure 116/57 122/61 (mmHg) O2 Sat by Pulse 96 96 Oximetry 07/10/16 07/10/16 07/11/16 20:39 23:53 00:00 Temperature 99.4 F 98.1 F Pulse Rate 101 Respiratory 19 20 Rate Blood Pressure 129/62 (mmHg) O2 Sat by Pulse 98 Oximetry 07/11/16 07/11/16 07/11/16 04:00 04:34 05:21 Temperature 97.9 F Pulse Rate 103 69 Respiratory 22 14 Rate Blood Pressure 135/56 148/57 (mmHg) O2 Sat by Pulse 94 93 Oximetry 07/11/16 07/11/16 07/11/16 07:15 07:37 10:01 Temperature 97.6 F Pulse Rate 96 90 Respiratory 22 18 18 Rate Blood Pressure 121/64 (mmHg) O2 Sat by Pulse 94 93 94 Oximetry Oxygen Devices in Use Now: Nasal Cannula - at 2L Appearance: 61 yo F in nAd, aAOx3 Eyes: No Scleral Icterus, PERRLA Ears/Nose/Mouth/Throat: NL Teeth, Lips, Gums, Mucous Membranes Moist Neck: NL Appearance and Movements; NL JVP, Trachea Midline Respiratory: Symmetrical Chest Expansion and Respiratory Effort, - - decreased breath sounds at RLL and rML. Pelurx cath in place in left chest Cardiovascular: NL Sounds; No Murmurs; No JVD, - - irregular Abdominal: NL Sounds; No Tenderness; No Distention, No Hepatosplenomegaly Lymphatic: No Cervical Adenopathy Extremities: No Clubbing, Cyanosis, - - +1 pitting pedal edema b/l Skin: No Rash or Ulcers, No Nodules or Sclerosis Neurological: Alert and Oriented x 3, NL Muscle Strength and Tone Result Diagrams: 07/11/16 05:13 07/11/16 05:13 Assess/Plan/Problems-Billing Assessment: 61 yo f with h/o samll cell lung cancer, Pleurx cath placed on L, s/ o ICU stay for acute respiratory failure requiring intubation (pleural and pericardial effusion) - Patient Problems (1) Acute respiratory failure Comment: Extubated. doing well back on her baseline 2L 02. CXR shows small L pneumothorax and l sided Pleurx in place. will ask to aspirate fluid via Pleurx today. cont Cefrepime started in the ICU (2) Pleural effusion Comment: Now s/p thoracentesis for 300 fluid on R, on 07/07/16 fluid bloody, most likely malignant (3) Paroxysmal atrial fibrillation Comment: Py is in and out of A. fib on telem. cont short acting Cardizem no anticoagulation for now -bloody pleural fluid due to malignancy (4) Pericardial effusion with cardiac tamponade Comment: 500 ml of bloody fluid obtained on 07/07/16 Now stable. will obtain f/u echo (5) DVT prophylaxis Comment: Lovenox stopped due to thombocytopenia. Plt antibody levels pending. Status and Disposition: inpatient. PT/OT evaluation pending, may need rehab.
[2016-07-12] MEDS: Diltiazem TAB* 30 MG PO SCH ×4 (05:56→23:21)
[2016-07-12] MEDS: Omeprazole CAP* 20 MG PO SCH (05:56)
[2016-07-12] MEDS: Cefepime(*) 2 GM in NS 0.9% 50 ML* 50 ML IVPB SCH ×2 (05:58→18:11)
[2016-07-12] MEDS: NS 0.9% 1000 ML* 1,000 ML IV SCH (06:23)
[2016-07-12 06:25] LABS: Hematocrit 26 % (35-47); Hemoglobin 8.8 g/dl (12.0-16.0); Mean Corpuscular HGB Conc 34 g/dl (31-36); Mean Corpuscular Hemoglobin 30 pg (27-31); Mean Corpuscular Volume 88 fL (80-97); Mean Platelet Volume 8 um3 (7.4-10.4); Red Blood Count 2.94 10^6/ul (4.0-5.4); Red Cell Distribution Width 13 % (10.5-15); White Blood Count 5.8 10^3/ul (3.5-10.8)
[2016-07-12 06:26] LABS: Comments Flag Yes
--- NOTE | 2016-07-12 08:49 | PN ---
Progress Note - Progress Note SOAP: Subjective: []Doing well. Breathing baseline and better then before she started treatment. Eating well and is doing some walking. Did not work with PT yesterday. Has no pain. Pleurex in place. Acetaminophen (Tylenol Tab*) 325 mg PO Q4H PRN PRN Reason: PAIN Albuterol/Ipratropium (Duoneb Neb.Daphne*) 1 neb INH Q4H PRN PRN Reason: SOB/WHEEZING Allopurinol (Zyloprim Tab*) 300 mg PO DAILY [facility] Last Admin: 07/11/16 09:53 Dose: 300 mg Diltiazem HCl (Cardizem Tab*) 30 mg PO Q6HR [facility] Last Admin: 07/12/16 05:56 Dose: 30 mg Docusate Sodium (Colace Cap*) 100 mg PO BID PRN PRN Reason: CONSTIPATION Last Admin: 07/06/16 18:30 Dose: 100 mg Cefepime HCl 2 gm/ Sodium (Chloride) 50 mls @ 100 mls/hr IVPB Q12H [facility] Last Admin: 07/12/16 05:58 Dose: 100 mls/hr Sodium Chloride (Ns 0.9% 1000 Ml*) 1,000 mls @ 0 mls/hr IV PER RATE [facility] PRN Reason: KVO Last Admin: 07/12/16 06:23 Dose: 20 mls/hr Omeprazole (Prilosec Cap*) 20 mg PO DAILY@0600 [facility] Last Admin: 07/12/16 05:56 Dose: 20 mg Oxycodone HCl (Roxycodone Tab*) 5 mg PO Q6H PRN PRN Reason: PAIN Last Admin: 07/10/16 08:30 Dose: 5 mg Sertraline HCl (Zoloft*) 50 mg PO DAILY [facility] Last Admin: 07/11/16 09:53 Dose: 50 mg Valacyclovir HCl (Valtrex 1 Gm(*)) 1 gm PO DAILY [facility] PRN Reason: Protocol Last Admin: 07/11/16 09:53 Dose: 1 gm Objective: [] Vital Signs Temp Pulse Resp BP Pulse Ox 97.5 F 51 16 127/48 98 07/12/16 07:55 07/12/16 07:55 07/12/16 07:55 07/12/16 07:55 07/12/16 07:55 HEENT - pale, no thrush. BS improved and good air movement. Decreased sounds on left. Pleurex under bandage. RRR S1S2 +BS, NT/ND Ext w/o edema Neuro - in tact Assessment: []61 year old with extensive stage SSLC, treated one day of chemotherapy on 07/05 and then admitted with respiratory failure, pleural effusion and pericardial effusion. Plan: []1. Respiratory status improved and on 2 L NC. Will plan d/c home on oxygen. Will continue to drain pleurex at home for time being. has supplies. 2. PT today and can be discharged once independent. 3. Pericardial effusion. Will follow clinically, repeat echo or additional symptoms. 4. FEN. Normalized. Follow 5. SSLC. If can go home mid week, treat cycle 2 on 07/19/16
[2016-07-12] MEDS: Sertraline* 50 MG TAB PO SCH (09:52)
[2016-07-12] MEDS: Allopurinol TAB* 300 MG PO SCH (09:53)
[2016-07-12] MEDS: ValACYclovir (*) 1 GM TAB PO SCH (09:53)
--- NOTE | 2016-07-12 11:17 | ECHO ---
Patient: NIKKI MC [facility] Rec#: [id number] : 1955 Date: 07/12/2016 Age: 61y Height: 165.1 cm / 65.0 in Weight: 10.89 kg / 24.0 lbs Sex: F BSA: 0.8 Room#: 440 Admit Date#: 07/06/2016 Type: Inpatient Referring: Yesenia Araya MD Reading: Bhavesh Mckeon MD Manager Power: Ev Moran FELIBERTO CC: Raphael Sorensen MD Transthoracic Echocardiogram Indication: Pericardial effusion follow up BP: 145/80 HR: 97 Rhythm: A-Flutter Findings History: Breast cancer with radiation and chemo, pericardial effusion s/p pericardialcentesis(500ml withdrawn), s/p intubation for respiratory failure,metastatic lung cancer,bilateral pleural effusion. Study done with HOB at 75 degrees. Technical Comments: The study was technically limited due to the patient's inability to lay in the left lateral decubitus position. Completed at 0848. Left Ventricle: The left ventricular chamber size is decreased. Mild to moderate concentric left ventricular hypertrophy is observed. Global left ventricular wall motion and contractility are within normal limits. There is normal left ventricular systolic function. The estimated ejection fraction is 55-60%. The patient was unable to perform a Valsalva maneuver. Left Atrium: The left atrial chamber size is normal. Right Ventricle: The right ventricle is not well visualized. The right ventricular cavity size is normal. Right Atrium: The right atrium is not well visualized. Aortic Valve: The aortic valve is trileaflet. There is no evidence of aortic regurgitation. There is no evidence of aortic stenosis. Mitral Valve: The mitral valve leaflets appear normal. There is no evidence of mitral regurgitation. There is no evidence of mitral stenosis. Tricuspid Valve: The tricuspid valve structure is not well visualized. Pulmonic Valve: The pulmonic valve appears normal. There is a trace pulmonic regurgitation. There is no pulmonic stenosis. Pericardium: There is a large pericardial effusion. There are no signs of significant hemodynamic compromise. There is a circumferential pericardial effusion. The pericardial effusion is fibrinous. Aorta: There is no dilatation of the ascending aorta. There is no dilatation of the aortic arch. There is no dilation of the aortic root. Pulmonary Artery: The main pulmonary artery appears normal. Venous: The venous system is not well visualized. Conclusions Mild to moderate concentric left ventricular hypertrophy is observed. Global left ventricular wall motion and contractility are within normal limits. There is normal left ventricular systolic function. The estimated ejection fraction is 55-60%. The right ventricular cavity size is normal. There is no evidence of aortic regurgitation. There is no evidence of mitral regurgitation. The tricuspid valve structure is not well visualized. There is a large pericardial effusion. There is a circumferential pericardial effusion. There are no signs of significant hemodynamic compromise. There is no dilatation of the ascending aorta. Compared to study of 07/07/16, there is little change, Overall size of pericardail effusion may be slightly larger. No evidence of tamponade Measurements Name Value Normal Range RVIDd (AP) 2D 2.3 cm (0.9 - 2.6) RVDdMajor (2D) 2.8 cm (2.2 - 4.4) RAd ISD 4CH 3.6 cm (3.4 - 4.9) RA (A4C)W 2.4 cm (2.9 - 4.6) IVSd (2D) 1.3 cm (0.6 - 1) LVPWd (2D) 1.1 cm (0.6 - 1) LVIDd (2D) 3.3 cm (3.6 - 5.4) LVIDs (2D) 1.8 cm - LV FS (2D) 45 % (25 - 45) Aortic Annulus 1.7 cm (1.4 - 2.6) Ao root diameter (2D) 2.6 cm (2.1 - 3.5) Ascending Ao 3.1 cm (2.1 - 3.4) Aortic arch 2.4 cm (1.8 - 3.4) Descending Ao 0.4 cm - LA dimension (AP) 2D 3.4 cm (2.3 - 3.8) LAd ISD 4CH 5.1 cm (2.9 - 5.3) LA ISD 4CH W 3.7 cm (2.5 - 4.5) Name Value Normal Range LA ESV SP 4CH (A/L) 34 ml - LA ESV SP 2CH (A/L) 34 ml - LA ESV BP (A/L) 34 ml - LA ESV BP (A/L) index 42.94 ml/m2 - LA ESV SP 4CH (MOD) 32 ml - LA ESV SP 2CH (MOD) 33 ml - Name Value Normal Range MV E-wave Vmax 1 m/sec - MV deceleration time 223 msec - MV A-wave Vmax 1.3 m/sec - MV E:A ratio 0.8 ratio - LV septal e' Vmax 0.07 m/sec - LV lateral e' Vmax 0.07 m/sec - LV E:e' septal ratio 14.29 ratio - LV E:e' lateral ratio 14.29 ratio - Name Value Normal Range AV Vmax 1.5 m/sec - AV VTI 32.2 cm - AV peak gradient 7.81 mmHg - AV mean gradient 4.56 mmHg - LVOT Vmax 1.3 m/sec - LVOT VTI 26 cm - LVOT peak gradient 7.2 mmHg - LVOT mean gradient 3.76 mmHg - Name Value Normal Range PV Vmax 0.7 m/sec - PV peak gradient 1.92 mmHg -
[2016-07-12] MEDS: oxyCODONE TAB* 5 MG TAB PO PRN (21:34)
[2016-07-13] MEDS: Cefepime(*) 2 GM in NS 0.9% 50 ML* 50 ML IVPB SCH ×2 (05:19→17:39)
[2016-07-13] MEDS: Omeprazole CAP* 20 MG PO SCH (05:19)
[2016-07-13] MEDS: Diltiazem TAB* 30 MG PO SCH ×4 (05:19→22:57)
[2016-07-13] MEDS: Allopurinol TAB* 300 MG PO SCH (09:20)
[2016-07-13] MEDS: Sertraline* 50 MG TAB PO SCH (09:20)
[2016-07-13] MEDS: ValACYclovir (*) 1 GM TAB PO SCH (10:46)
[2016-07-13] MEDS: Enoxaparin(*) 40 MG/0.4 ML SYR SUBCUT SCH (11:32)
[2016-07-13] MEDS: oxyCODONE TAB* 5 MG TAB PO PRN (22:57)
[2016-07-14] MEDS: Cefepime(*) 2 GM in NS 0.9% 50 ML* 50 ML IVPB SCH (05:14)
[2016-07-14] MEDS: Diltiazem TAB* 30 MG PO SCH ×4 (05:15→23:51)
[2016-07-14] MEDS: Omeprazole CAP* 20 MG PO SCH (05:15)
[2016-07-14 05:39] LABS: Hematocrit 25 % (35-47); Hemoglobin 8.3 g/dl (12.0-16.0); Mean Corpuscular HGB Conc 33 g/dl (31-36); Mean Corpuscular Hemoglobin 29 pg (27-31); Mean Corpuscular Volume 89 fL (80-97); Mean Platelet Volume 8 um3 (7.4-10.4); Red Blood Count 2.82 10^6/ul (4.0-5.4); Red Cell Distribution Width 14 % (10.5-15); White Blood Count 3.1 10^3/ul (3.5-10.8)
[2016-07-14 05:43] LABS: Comments Flag Yes
[2016-07-14 05:44] LABS: Add Diff/Slide Review? Slide Review Added
[2016-07-14 05:57] LABS: Calcium 8.7 mg/dL (8.6-10.3); EGFR African American 208.7 (>60); EGFR Non-African American 162.3 (>60); Potassium 3.8 mmol/L (3.5-5.0)
[2016-07-14] MEDS: Sertraline* 50 MG TAB PO SCH (08:25)
[2016-07-14] MEDS: ValACYclovir (*) 1 GM TAB PO SCH (08:25)
[2016-07-14] MEDS: Allopurinol TAB* 300 MG PO SCH (08:25)
[2016-07-14] MEDS: Enoxaparin(*) 40 MG/0.4 ML SYR SUBCUT SCH (11:15)
[2016-07-14] MEDS: Cephalexin CAP* 250 MG PO SCH ×3 (12:23→20:22)
[2016-07-14 16:23] LABS: GPIIb/IIIa (Cell-1) Negative; GPIIb/IIIa (Cell-2) Negative; GPIV Negative; GPIa/IIa (Cell-1) Negative; GPIa/IIa (Cell-2) Negative; GPIb/IX Negative; HLA Class I Negative; IVIg in last month? No; Platelet Count x 10(9)/L? 7.9; Plt Transfusion in last 72hrs? No
[2016-07-14] MEDS: oxyCODONE TAB* 5 MG TAB PO PRN (17:15)
[2016-07-15] MEDS: Diltiazem TAB* 30 MG PO SCH ×4 (05:28→23:46)
[2016-07-15] MEDS: Omeprazole CAP* 20 MG PO SCH (05:28)
[2016-07-15] MEDS: ValACYclovir (*) 1 GM TAB PO SCH (09:15)
[2016-07-15] MEDS: Cephalexin CAP* 250 MG PO SCH ×4 (09:15→20:32)
[2016-07-15] MEDS: Sertraline* 50 MG TAB PO SCH (09:15)
[2016-07-15] MEDS: Allopurinol TAB* 300 MG PO SCH (09:16)
[2016-07-15 10:46] LABS: Hematocrit 24 % (35-47); Hemoglobin 7.9 g/dl (12.0-16.0); Mean Corpuscular HGB Conc 34 g/dl (31-36); Mean Corpuscular Hemoglobin 30 pg (27-31); Mean Corpuscular Volume 88 fL (80-97); Mean Platelet Volume 9 um3 (7.4-10.4); Red Blood Count 2.68 10^6/ul (4.0-5.4); Red Cell Distribution Width 14 % (10.5-15); White Blood Count 1.9 10^3/ul (3.5-10.8)
[2016-07-15 10:54] LABS: Add Diff/Slide Review? Slide Review Added; Comments Flag Yes
[2016-07-15 10:59] LABS: BUN/Creatinine Ratio 54.3 (8-20); Calcium 8.6 mg/dL (8.6-10.3); EGFR African American 243.5 (>60); EGFR Non-African American 189.3 (>60); Phosphorus 1.6 mg/dL (2.5-5.0); Potassium 3.6 mmol/L (3.5-5.0)
[2016-07-15] MEDS: Potassium & Sodium Phos 250MG* = 1 PACKET PO SCH ×3 (13:12→20:32)
[2016-07-16] MEDS: Diltiazem TAB* 30 MG PO SCH ×2 (05:17→11:21)
[2016-07-16] MEDS: Omeprazole CAP* 20 MG PO SCH (05:18)
--- NOTE | 2016-07-16 09:10 | DS ---
DISCHARGE SUMMARY FOR PRISON PLACEMENT DATE OF ADMISSION: 07/06/16 DATE OF PENDING DISCHARGE: 07/16/16 Discharge dictated by VENICE Jackson for Malaika Frost MD. PRINCIPAL DIAGNOSES: Include 1. Acute respiratory failure requiring intubation. 2. Paroxysmal atrial fibrillation. 3. Pericardial effusion with cardiac tamponade. 4. Extensive small cell lung cancer, newly diagnosed. 5. History of breast cancer, remotely. 6. Community-acquired pneumonia. 7. DVT prophylaxis. 8. Pleural effusion. PRINCIPAL MEDICATIONS FOR DISCHARGE: Will include 1. Albuterol metered-dose inhaler with ipratropium two puffs inhaled every 6 hours as needed. 2. Allopurinol 300 mg daily. 3. Keflex 250 mg po qid for three additional days. 4. Diltiazem 30 mg po q 6 hours. 5. Colace 100 mg po bid prn constipation. 6. Prilosec 20 mg daily. 7. Oxycodone 5 mg every 6 hours as needed for pain. 8. Neutra-Phos 250 mg po qid. 9. Zoloft 50 mg daily. 10. Valacyclovir 1 gram po daily for herpes prophylaxis. HOSPITAL COURSE: Briefly, patient's history and physical is well documented in a consult note by Dr. Donnie Gomez. Patient was in the radiology department and a CAT team call was initiated secondary to respiratory failure. It was found both with chest CT and transthoracic echocardiogram that the patient had an extensive pericardial effusion with cardiac tamponade. Subsequent to the CAT team, the patient also was intubated. A pericardial window drained an extensive amount of red blood-colored exudate, and she was subsequently sent to the ICU for further care. She had recently been treated for a newly-diagnosed small cell lung cancer with extensive disease with cycle one of Carboplatin and Etoposide. Day one was on the day of her admission. She was also found to be in A-fib with RVR at the time of her port placement by Dr. Nuñez. The atrial fibrillation was attributed to the pulmonary failure from her cancer and effusions. She was hypercapnic at the time of her respiratory failure which was monitored by Dr. Gomez while she was in the intensive care unit. She was later stepped down to off intubation and oxygenation. She had been on oxygenation prior to her admission, continued throughout her hospital stay, and was weaned down to her baseline oxygen level. In addition, she was found to have a pneumonia, and was placed on Cefepime intravenous, and later stepped down to Keflex orally. She continued to be in multiple rhythms, even on telemetry, as she was stepped down after her intensive care treatment. Her last electrocardiogram did show stability on 07/14/16. She She had a follow up transthoracic echocardiogram which did reveal a normal ejection fraction of 55-60%, and the pericardial effusion had improved. She remained with a Pleur-X catheter for the left effusions, and will have that drained on an intermittent basis. Her has been taught with the Pleur-X system. She did have significant electrolyte abnormalities which have been repleted throughout the course of her hospital stay. In addition, she had been followed by physical therapy for her deconditioning for which she did fail the ability to go home, and will require short-term acute rehab at the [facility]. Her next cycle of chemotherapy is due in approximately a week to ten days pending her blood count recovery. She did have reduction in all cell lines including neutropenia of 1.3 absolute neutrophil count. Platelets were decreasing at 37, and hemoglobin was 7.9 on 07/15/16. She will require close monitoring of her CBC which has been set up to be drawn at the shelter on Tuesday. She will also follow up in the [facility] office next week status post her hospitalization with follow-up labs. Consults initiated during her hospital stay did include cardiology, Dr. Dann Florian, and the superintendent colliery, Dr. Gomez. On the day of her discharge, she remained stable and currently afebrile on Keflex. She will follow a regular diet and activity level as per the physical therapy plans, and we will monitor her closely. VENICE JACKSON [id number]/[facility] #: [id number] DOUGLAS
[2016-07-16 10:41] LABS: Hematocrit 23 % (35-47); Hemoglobin 7.9 g/dl (12.0-16.0); Mean Corpuscular HGB Conc 34 g/dl (31-36); Mean Corpuscular Hemoglobin 30 pg (27-31); Mean Corpuscular Volume 88 fL (80-97); Mean Platelet Volume 9 um3 (7.4-10.4); Red Blood Count 2.64 10^6/ul (4.0-5.4); Red Cell Distribution Width 14 % (10.5-15); White Blood Count 1.3 10^3/ul (3.5-10.8)
[2016-07-16 10:45] LABS: Comments Flag Yes
[2016-07-16 10:55] LABS: Add Diff/Slide Review? Slide Review Added
[2016-07-16 11:17] LABS: Add Path Review? YES; Hypochromasia 2+
[2016-07-16] MEDS: Potassium & Sodium Phos 250MG* = 1 PACKET PO SCH (11:20)
[2016-07-16] MEDS: Sertraline* 50 MG TAB PO SCH (11:20)
[2016-07-16] MEDS: ValACYclovir (*) 1 GM TAB PO SCH (11:20)
[2016-07-16] MEDS: Cephalexin CAP* 250 MG PO SCH ×2 (11:21→12:22)
[2016-07-16] MEDS: Allopurinol TAB* 300 MG PO SCH (11:21)
[2016-07-16 11:26] VITALS: BP 121/48
--- NOTE | 2016-07-17 02:32 | DS ---
DISCHARGE SUMMARY: ADDENDUM: Plan of care reviewed with the patient. Discharge delayed x24 hours due to pending insurance. Insurance approved and plan for the patient to be discharged on 07/16/16. The patient feeling well with no complaints. CBC with pancytopenia secondary to chemotherapy. No role for transfusions at this time, however will follow labs closely with CBC [facility] and then Tuesday a.m. in [facility] office. [place], [place] [id number]/[facility] #: [id number] DOUGLAS
== END 2016-07-16 13:50 | DRG 136 ==
LOC: MEDTELE 17:30 → ICU 07-07 11:08 → OBSVTOIN 07-08 10:00 → INTOOBSV 07-08 10:00 → MEDTELE 07-11 00:14
PROVIDERS: ADMIT Internal Medicine Hematology & Oncology; ATTEND Internal Medicine Hematology & Oncology
PROC: 0W9D3ZZ Drainage of Pericardial Cavity, Percutaneous Approach (ICD-10-PCS; 2016-07-07)
PROC: 5A09357 Assistance with Respiratory Ventilation, Less than 24 Consecutive Hours, Continuous Positive Airway Pressure (ICD-10-PCS; 2016-07-07)
PROC: 0W993ZZ Drainage of Right Pleural Cavity, Percutaneous Approach (ICD-10-PCS; principal; 2016-07-08)
PROC: 5A1945Z Respiratory Ventilation, 24-96 Consecutive Hours (ICD-10-PCS; 2016-07-08)
PROC: 0BH17EZ Insertion of Endotracheal Airway into Trachea, Via Natural or Artificial Opening (ICD-10-PCS; 2016-07-08)
DX: C34.90 Malignant neoplasm of unspecified part of unspecified bronchus or lung (principal); I31.4 Cardiac tamponade; G93.41 Metabolic encephalopathy; D61.810 Antineoplastic chemotherapy induced pancytopenia; J18.9 Pneumonia, unspecified organism; J96.02 Acute respiratory failure with hypercapnia; J96.01 Acute respiratory failure with hypoxia; N17.9 Acute kidney failure, unspecified; I31.3 Pericardial effusion (noninflammatory); J91.0 Malignant pleural effusion; E87.1 Hypo-osmolality and hyponatremia; J93.9 Pneumothorax, unspecified; E87.2 Acidosis; Z88.5 Allergy status to narcotic agent; Z88.8 Allergy status to other drugs, medicaments and biological substances; F41.9 Anxiety disorder, unspecified; Z85.3 Personal history of malignant neoplasm of breast; T45.1X5A Adverse effect of antineoplastic and immunosuppressive drugs, initial encounter; R41.82 Altered mental status, unspecified; J44.9 Chronic obstructive pulmonary disease, unspecified; B02.9 Zoster without complications; E87.6 Hypokalemia; I48.0 Paroxysmal atrial fibrillation; Z80.9 Family history of malignant neoplasm, unspecified; F32.9 Major depressive disorder, single episode, unspecified; K59.00 Constipation, unspecified
CPT/HCPCS: 1036F; 36415; 36592; 36600; 70470; 71010; 71275; 76000; 80048; 80053; 80162; 81003; 81015; 82140; 82330; 82803; 83605; 83735; 84100; 84484; 84550; 85025; 85027; 85060; 85610; 86022; 92950; 93005; 93306; 94002; 94003; 94660; 94760; 96360; 96367; 96413; 96417; 99214; 99223; 99232; 99233; 99239; 99406; A9270-GY; C1788; G0463; G8427; J0171; J0610; J0690; J0692; J1100; J1160; J1170; J1642; J1644; J1650; J1720; J1940; J2250; J2469; J2704; J2997; J3010; J3490; J7512; J9045; J9181; P9047; Q9967